=== PATIENT | male | born 1970 | race Caucasian/White ===

== ENCOUNTER 2024-09-02 06:37 | Emergency (ER) | payer BC, SELFPAY ==
--- NOTE | ~2024-09-02 | CT_ITS ---
EXAMINATION: CT abdomen pelvis w con DATE: 09/02/2024 07:44 INDICATION: Right lower quadrant abdominal pain TECHNIQUE: Computed tomography (CT) of the abdomen and pelvis was performed with 100 mL Omnipaque-350 intravenous contrast. Automated exposure control and iterative reconstruction technique were employe d. The dose-length product was 1691.29 mGy-cm. COMPARISON: None FINDINGS: Lung bases are clear. Heart size is normal. Atherosclerotic coronary artery calcifications. No perica rdial or pleural effusion. Adjustable laparoscopic banding procedure with normal phi angle of 35 degr ees. Cholecystectomy clips the gallbladder fossa. Liver, spleen, pancreas and bilateral adrenal gland s are normal. 2.3 cm right renal cyst. There are additional bilateral parapelvic cysts. Bilateral nep hrolithiasis with 4 stones in the left kidney measuring up to 5 mm and 3 stones in the right kidney m easuring up to 4 mm. There is also an obstructing 5 mm stone at the right ureteropelvic junction with mild right hydronephrosis. Moderate diverticulosis with descending colon predominance and without ad jacent inflammatory stranding to suggest diverticular colitis. No bowel obstruction. The appendix is not visualized. No pericecal inflammatory change to suggest acute appendicitis. Bladder is normal. No free intraperitoneal gas or fluid. No pathologically enlarged abdominal or pelvic lymphadenopathy. M ild lumbar and lower thoracic spondylosis. IMPRESSION: 1. Bilateral nephrolithiasis with obstructing 5 mm stone at the right ureteropelvic junction with mil d right hydronephrosis. Reviewed, dictated and finalized at location A. IMPRESSION: 1. Bilateral nephrolithiasis with obstructing 5 mm stone at the right ureterope lvic junction with mild right hydronephrosis.
[2024-09-02 06:42] VITALS: BP 146/93; PULSE 77; RESP 22; TEMP 36.3; O2SAT 98
[2024-09-02 07:00] LABS: Basophils Absolute Auto 0.1 K/mm3 (0.0-0.1); Basophils Percent Auto 0.9 % (0.2-1.2); Eosinophils Absolute Auto 0.2 K/mm3 (0-0.3); Eosinophils Percent Auto 2.7 % (0-4.4); Hematocrit 45.6 % (42.0-52.0); Hemoglobin 15.8 g/dL (14.0-18.0); Immature Granulocyte Absolute 0.03 K/mm3 (0.00-0.031); Immature Granulocyte Percent A 0.3 % (0-0.5); Lymphocytes Absolute Auto 2.26 K/mm3 (0.9-3.2); Lymphocytes Percent Auto 25.5 % (18.3-44.2); Mean Corpuscular HGB Conc 34.6 g/dl (32-36); Mean Corpuscular Volume 89.6 fl (80-100); Mean Platelet Volume 9.7 fl (7.4-10.4); Monocytes Absolute Auto 0.7 K/mm3 (0.1-0.6); Monocytes Percent Auto 7.8 % (2.6-8.5); Neutrophils Absolute Auto 5.6 K/mm3 (1.3-6.7); Neutrophils Percent Auto 62.8 % (45.5-73.1); Platelet Count Result 284 k/mm3 (150-375); Red Blood Count 5.09 M/mm3 (4.6-6.20); Red Cell Distribution Width 13.3 % (11.5-14.5); White Blood Count 8.9 K/mm3 (4.5-10.0)
--- NOTE | 2024-09-02 07:03 | ED.MALEGU ---
HPI - Male Genitourinary General Chief complaint: Urogenital-Male Stated complaint: flank pain Time Seen by Provider: 09/02/24 07:01 Source: patient Mode of arrival: ambulatory Limitations: no limitations History of Present Illness HPI Narrative: Patient presents with right lower quadrant abdominal pain. He states that this pain awoke him from sleep at 5:00 a.m.. He describes the pain as 12/10 in severity. In route to the emergency department he noted that the pain seems to be radiating to his right flank. He describes the pain as sharp. He has a history of kidney stone(s), requiring history of surgical/operative intervention. Has a urologist at home in [place]. He also has a history of diverticulitis complicated by perforation (unknown microperforation versus large perforation). He is also status post appendectomy. He last had a colonoscopy in approximately 2021 after the diverticulitis flare. He has had subjective fevers and chills and was diaphoretic EN route. He denies any dysuria but has noticed that his urine is darker in color and thinks it might be hematuria. He denies any urgency or frequency. He was having diarrheal bowel movements all day yesterday, I could have s through a screen window and not touched any wires.He has been nauseated and was dry heaving in route. No bloody bowel movements. He has not taken any medications prior to arrival. Denies any opiate/narcotic medication allergies. Still feels nauseated. 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 HEAD: Normocephalic, atraumatic. EYES: Non injected, non icteric ENT: Nares clear, no rhinorrhea or epistaxis. Gross auditory acuity intact. NECK: Supple. No meningismus. CHEST: Speaking in full sentences. No respiratory distress. HEART: Regular rate and rhythm. ABDOMEN: Obese, Soft, nondistended. Right lower quadrant tenderness to palpation. No rigidity or guarding. Not peritoneal. BACK/: No CVA tenderness bilaterally. Dark urine at bedside. EXTREMITIES: Normal range of motion. SKIN: Warm, dry, no rash. NEURO: No focal deficits. Alert and oriented. Answering questions. Following commands. Normal speech without aphasia or dysarthria. PSYCH: Normal mood and affect. Course Vital Signs Vital signs: Vital Signs Temperature 97.4 F L 09/02/24 06:42 Pulse Rate 77 09/02/24 06:42 Respiratory Rate 22 H 09/02/24 06:42 Blood Pressure 146/93 H 09/02/24 06:42 Pulse Oximetry 98 09/02/24 06:42 Oxygen Delivery Room Air 09/02/24 06:42 Temperature 97.4 F L 09/02/24 06:42 Pulse Rate 67 09/02/24 09:57 Respiratory Rate 18 09/02/24 09:57 Blood Pressure 138/82 09/02/24 09:57 Pulse Oximetry 97 09/02/24 09:57 Oxygen Delivery Room Air 09/02/24 06:42 MDM - Male Genitourinary MDM Narrative Medical decision making narrative: Patient presents with right lower quadrant abdominal pain and right flank pain. History of kidney stones as well as diverticulitis complicated by perforation (unsure microperforation versus more involved); also s/p appy. In the emergency department he is afebrile with vital signs notable for mild hypertension and mild tachypnea. Pain medication ordered. Mild hyperglycemia without an anion gap, mild derangement of CO2 but not frankly acidotic. Total bilirubin is slightly elevated. Urine without bacteria but hematuria. Patient's pain medication is re-dosed. Although there is a degree of obstruction and mild hydronephrosis, the stone size otherwise appears to be amenable to expulsion therapy and he is without leukocytosis or signs of infected urine. Given this, I did discuss with on-call urologist Dr Morel who confirms likely a good expulsion candidate. Patient given ketorolac, Flomax, and strainer. Discharged for prescriptions for combination therapy of ketorolac, Flomax, and ondansetron, as well as opiate short course for breakthrough pain. We discussed the risks and benefits of this. Patient given strict emergency department return precautions which he verifies understanding and is in agreement with the plan. Stable for discharge. Differential Diagnosis Differential diagnosis: Likely other (Ureteral stone/kidney stone, diverticulitis possibly complicated; epiploic appendagitis; colitis/enteritis; gastroenteritis; obstruction) Lab Data Attestation: I reviewed the patient's lab results. Lab results narrative: CBC unremarkable 09/02/24 06:54 09/02/24 06:54 Labs: Lab Results 09/02/24 09/02/24 Range/Units 06:54 07:06 WBC 8.9 (4.5-10.0) K/mm3 RBC 5.09 (4.6-6.20) M/mm3 Hgb 15.8 (14.0-18.0) g/dL Hct 45.6 (42.0-52.0) % MCV 89.6 (80-100) fl MCH 31.0 (26-34) pg MCHC 34.6 (32-36) g/dl RDW 13.3 (11.5-14.5) % Plt Count 284 (150-375) k/mm3 MPV 9.7 (7.4-10.4) fl Immature Gran % (Auto) 0.3 (0-0.5) % Neut % (Auto) 62.8 (45.5-73.1) % Lymph % (Auto) 25.5 (18.3-44.2) % [place] % (Auto) 7.8 (2.6-8.5) % Eos % (Auto) 2.7 (0-4.4) % Baso % (Auto) 0.9 (0.2-1.2) % Lymph # (Auto) 2.26 (0.9-3.2) K/mm3 [place] # (Auto) 0.7 H (0.1-0.6) K/mm3 Eos # (Auto) 0.2 (0-0.3) K/mm3 Baso # (Auto) 0.1 (0.0-0.1) K/mm3 Abs Immat Gran (auto) 0.03 (0.00-0.031) K/mm3 Absolute Neuts (auto) 5.6 (1.3-6.7) K/mm3 Absolute Nucleated RBC 0.000 (0.0-0.012) K/mm3 Nucleated RBC % 0.0 (0.0-0.2) % Sodium 140 (137-145) mmol/L Potassium 4.0 (3.4-5.0) mmol/L Chloride 109 H (98-107) mmol/L Carbon Dioxide 19 L (22-30) mmol/L Anion Gap 12 (4-12) mmol/L BUN 8 L (9-20) mg/dL Creatinine 0.84 (0.7-1.3) mg/dL Estim Creat Clear Calc 127 ml/min Estimated GFR > 60 (59 - ) Glucose 147 H (65-110) mg/dL Calcium 8.9 (8.4-10.2) mg/dL Total Bilirubin 1.8 H (0.2-1.3) mg/dL AST 31 (17-59) U/L ALT 37 (6-50) U/L Alkaline Phosphatase 59 (38-126) U/L Total Protein 7.5 (6.3-8.2) g/dL Albumin 4.1 (3.5-5.1) g/dL Urine Color [place] H (Yellow) Urine Appearance Cloudy H (Clear) Urine pH 5.5 (5.0-9.0) Ur Specific [place] 1.014 (1.001-1.035) Urine Protein 1+ H (Negative) mg/dL Urine Glucose (UA) Negative (Negative) mg/dL Urine Ketones Negative (Negative) mg/dL Ur Blood (Man) 3+ H (Negative) Urine Nitrate Negative (Negative) Urine Bilirubin Negative (Negative) Urine Urobilinogen 1.0 (<2.0) mg/dL Leukocyte Esterase Rfl Trace H (Negative) OWEN/UL Urine RBC >100 H (0-2) /hpf Urine WBC 6-10 H (0-3) /hpf Ur Squamous Epith Cells Occasional (Few) /hpf Urine Bacteria None seen /hpf Urine Casts 0-2 Imaging Data Radiologist's impression: Impressions Abdomen/Pelvis CT 09/02/24 07:57 IMPRESSION: 1. Bilateral nephrolithiasis with obstructing 5 mm stone at the right ureteropelvic junction with mild right hydronephrosis. Discharge Plan Discharge Clinical Impression: Gross hematuria, Obstruction of right ureteropelvic junction due to stone Patient Disposition: Home Condition: Stable Instructions: Antibiotic Form, Hematuria (ED), How to Strain Your Urine (ED), Opioid Safety (ED), Ureteral Stones (ED) Additional Instructions: As we discussed, will trial expulsion therapy with the combination of medications prescribed to see if with some assistance the stone will pass spontaneously. Use the Toradol and tamsulosin and, for breakthrough pain a short course of opiate medications have been ordered. He can strain the urine and follow-up with the urologist listed below if you remain in the area over the next few weeks. Do not hesitate to return to the emergency department any new, worsening, or unmanaged symptoms such as intractable nausea or vomiting, intractable pain, fever greater than 100.4? F, etc. Patient Language: Mauritanian Prescriptions: New tamsulosin 0.4 mg capsule 0.4 mg PO DAILY Qty: 12 0RF Rx Instructions: start 09/03 (received dose in ED 09/02) ondansetron 4 mg tablet,disintegrating 4 mg PO Q8H PRN (Reason: nausea and vomiting) Qty: 7 0RF ketorolac 10 mg tablet 10 mg PO Q8H PRN (Reason: pain) 5 Days Qty: 14 0RF Rx Instructions: maximum total duration of 5 days from all oral, intranasal, or parenteral formulations. Received first dose in ED 09/02 9am hydrocodone-acetaminophen 5-325 mg tablet 1 tablet PO Q8H PRN (Reason: pain) Qty: 7 0RF Follow-up/Referrals: PHYSICIAN NOT ON STAFF,NONSTAFF [Primary Care Provider] - Bernardino Morel MD [Physician] - (Urology) Stand Alone Forms: Work/School Release IP Time of Disposition: 09:48
[2024-09-02] MEDS: ONDANSETRON INJ 4 MG/2 ML VIAL IV PUSH (07:14)
[2024-09-02] MEDS: HYDROmorphone HCL INJ (*CRX) 2 MG/ML VIAL 1 MG IV PUSH ×2 (07:14→08:43)
[2024-09-02 07:16] LABS: Alanine Aminotransferase 37 U/L (6-50); Albumin Level 4.1 g/dL (3.5-5.1); Alkaline Phosphatase 59 U/L (38-126); Anion Gap 12 mmol/L (4-12); Aspartate Amino Transferase 31 U/L (17-59); Bilirubin,Total 1.8 mg/dL (0.2-1.3); Blood Urea Nitrogen 8 mg/dL (9-20); Calcium 8.9 mg/dL (8.4-10.2); Carbon Dioxide 19 mmol/L (22-30); Chloride 109 mmol/L (98-107); Estimated CRCL calculation 127 ml/min; Estimated Glomerular Filt Rate > 60; Glucose 147 mg/dL (65-110); Sodium 140 mmol/L (137-145); Total Protein 7.5 g/dL (6.3-8.2)
[2024-09-02 07:19] LABS: Bacteria Urine None Seen /hpf; Non Pathogenic Casts 0-2; RBC Urine >100 /hpf (0-2); Squamous Epithelial Cell Urine Occasional /hpf (Few)
[2024-09-02 07:22] LABS: Add Urine Microscopic? YES; Appearance Urine Cloudy (Clear); Bilirubin Urine Negative (Negative); Blood Urine 3+ (Negative); Color Urine Orange (Yellow); Glucose Urine UA Negative (Negative); Ketones Urine Negative (Negative); Leukocyte Esterase Ur Trace LEU/UL (Negative); Nitrate Urine Negative (Negative); Protein Urine 1+ mg/dL (Negative); Specific Grav Ur 1.014 (1.001-1.035); pH Urine 5.5 (5.0-9.0)
[2024-09-02 08:36] VITALS: BP 132/81; PULSE 62; RESP 18; O2SAT 97
[2024-09-02] MEDS: KETOROLAC 15 MG/ML VIAL (*BKC) IV PUSH (09:03)
[2024-09-02] MEDS: TAMSULOSIN HCL 0.4 MG CAPSULE PO (09:04)
[2024-09-02 09:57] VITALS: BP 138/82; PULSE 67; RESP 18; O2SAT 97
== END 2024-09-02 09:58 | disposition home or self-care (01) ==
PROVIDERS: Emergency Medicine; Emergency Provider Student in an Organized Health Care Education/Training Program
DX: N13.2 Hydronephrosis with renal and ureteral calculous obstruction (principal); R31.0 Gross hematuria; Z87.442 Personal history of urinary calculi
CPT/HCPCS: 36415; 74177; 80053; 81001; 85025; 87086; 96374; 96375; 99284; A9270; J1171; J1885; J2405; Q9967

== ENCOUNTER 2024-09-04 11:03 | Observation (INO) | payer BC, SELFPAY ==
[2024-09-04] VITALS (10 sets, daily range): BP systolic 120–163; BP diastolic 63–89; PULSE 68–92; RESP 14–98; TEMP 36.3–36.6; O2SAT 16–100; BMI 40.8
--- NOTE | ~2024-09-04 | XR_ITS ---
EXAMINATION: XR abdomen/kub 1V DATE: 09/04/2024 14:45 INDICATION: Kidney stone with abdominal pain. TECHNIQUE: A supine view of the abdomen on 2 radiographs was obtained. COMPARISON: CT dated 09/04/2024 FINDINGS: 3 if the stones in the right kidney and 4 stones in the left kidney are clearly visible on the plain radiographs. Also visible is the larger 5 mm stone in the proximal right ureter. Phlebolith and ather osclerotic calcific location the left hemipelvis. Cholecystectomy clips in right upper quadrant. Adju stable gastric banding procedure with normal phi angle of 40 degrees. Bowel gas pattern is unremarkab le. Lung bases are clear with no pleural effusion. Heart size is normal. IMPRESSION: 1. Bilateral nephrolithiasis with 5 mm stone in the proximal right ureter. Reviewed, dictated and finalized at location A.
--- NOTE | ~2024-09-04 | CT_ITS ---
EXAM: CT abdomen pelvis wo con - 09/04/2024 14:00 CDT History: 54 years old Male with kidney stone TECHNIQUE: Multidetector CT of the abdomen and pelvis without contrast. Coronal and sagittal reforma ts were also provided for review. Automatic exposure control was used for this study. COMPARISON: 09/02/2024. FINDINGS: Evaluation of bowel, vasculature, solid and hollow viscera is limited in the absence of oral and IV c ontrast. VISUALIZED CHEST: Mild dependent changes. Coronary atherosclerotic calcifications. ABDOMEN and PELVIS: LIVER: Within normal limits. GALLBLADDER: Postcholecystectomy. BILE DUCTS: No dilatation. SPLEEN: Within normal limits. PANCREAS: Within normal limits. ADRENAL GLANDS: Within normal limits. KIDNEYS and URETERS: Bilateral nephrolithiasis. 5 mm calculus in the right proximal ureter causing mi ld hydroureteronephrosis. Bilateral nonspecific perinephric stranding. Unchanged right renal cyst. URINARY BLADDER: Within normal limits. STOMACH and BOWEL: No abnormal bowel wall thickening. No obstruction. Colonic diverticulosis, without diverticulitis. Gastric band is seen. REPRODUCTIVE ORGANS: Within normal limits. MESENTERY/PERITONEAL CAVITY: No free fluid or pneumoperitoneum. LYMPH NODES: No abdominal or pelvic lymphadenopathy. ABDOMINAL WALL: Small fat-containing umbilical hernia. VASCULATURE: Within normal limits. MUSCULOSKELETAL: Multilevel degenerative changes of the spine. IMPRESSION: 1. 5 mm calculus in the right proximal ureter causing mild hydroureteronephrosis. No significant int erval change. Reviewed, dictated and finalized at location A. IMPRESSION: 1. 5 mm calculus in the right proximal ureter causing mild hydroureteronephros is. No significant interval change.
--- NOTE | ~2024-09-04 | XR_ITS ---
INTRAOPERATIVE FLUOROSCOPY: CLINICAL HISTORY: 54 years old Male; LASER ASSISTED R URETERAL STONE EXTRACTION W STENT PLACEMENT PROCEDURE COMMENTS: Limited intraoperative fluoroscopy of the right flank was performed. CUMULATIVE DOSE: 20.5 mGy FLUOROSCOPY TIME: 30.9 seconds FINDINGS/IMPRESSION: Please refer to operative note for further details. Reviewed, dictated and finalized at location A.
[2024-09-04 13:57] LABS: Add Urine Microscopic? YES; Appearance Urine Clear (Clear); Bacteria Urine None Seen /hpf; Bilirubin Urine Negative (Negative); Blood Urine Trace (Negative); Color Urine Yellow (Yellow); Glucose Urine UA Negative (Negative); Ketones Urine Trace mg/dL (Negative); Leukocyte Esterase Ur Trace LEU/UL (Negative); Nitrate Urine Negative (Negative); Non Pathogenic Casts 0-2; Protein Urine Negative (Negative); Specific Grav Ur 1.018 (1.001-1.035); Squamous Epithelial Cell Urine None Seen /hpf (Few); Urobilinogen Urine 0.2 mg/dL (<2.0); WBC Urine 0-5 /hpf (0-3); pH Urine 5.5 (5.0-9.0)
[2024-09-04 14:04] LABS: Basophils Percent Auto 0.4 % (0.2-1.2); Eosinophils Absolute Auto 0.1 K/mm3 (0-0.3); Eosinophils Percent Auto 1.2 % (0-4.4); Hematocrit 43.8 % (42.0-52.0); Immature Granulocyte Absolute 0.02 K/mm3 (0.00-0.031); Immature Granulocyte Percent A 0.2 % (0-0.5); Lymphocytes Absolute Auto 1.47 K/mm3 (0.9-3.2); Lymphocytes Percent Auto 14.7 % (18.3-44.2); Mean Corpuscular HGB Conc 34.2 g/dl (32-36); Mean Corpuscular Hemoglobin 31.3 pg (26-34); Mean Corpuscular Volume 91.4 fl (80-100); Mean Platelet Volume 9.6 fl (7.4-10.4); Monocytes Absolute Auto 0.9 K/mm3 (0.1-0.6); Monocytes Percent Auto 8.5 % (2.6-8.5); Neutrophils Absolute Auto 7.5 K/mm3 (1.3-6.7); Platelet Count Result 214 k/mm3 (150-375); Red Blood Count 4.79 M/mm3 (4.6-6.20); Red Cell Distribution Width 13.4 % (11.5-14.5)
--- NOTE | 2024-09-04 14:08 | ED_ITS ---
HPI - Male Genitourinary General Chief complaint: Urogenital-Male Stated complaint: right flank pain Time Seen by Provider: 09/04/24 14:02 History of Present Illness HPI Narrative: Pt diagnosed with a 5 mm ureteral stone 2 days ago. Pt says the pain has persisted for two days but was worse today and pain meds help a bit but still really uncomfortable. Pt denies fever or chills or vomiting. 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 Exam 2 Const: General: healthy appearing and no acute distress Nutritional Appearance: well nourished Limitations: no limitations Chest: Chest palpation & inspection: normal inspection of the chest Resp: Effort & Inspection: normal respiratory effort Auscultation: clear to auscultation bilaterally Cardio: Rate: regular rate Rhythm: regular rhythm GI: GI Palp: Yes Soft to palpation and No Tenderness to palpation present (GI) Auscultation: normal bowel sounds : General: Yes no CVA tenderness Back/Spine/Pelvis: Back: no CVA tenderness Skin: General skin exam: normal color Rashes: no rashes Wounds: no wounds Neuro: General: patient oriented x3, moves all extremities, no meningeal signs and no focal motor deficits Cranial nerves: Yes CN's II-XII intact bilaterally Speech: normal speech Extrem: General: normal to inspection and no clubbing, cyanosis or edema Psych: Mental Status: mental status grossly normal Affect: normal affect Attitude: cooperative Course Vital Signs Vital signs: Vital Signs Temperature 97.6 F 09/04/24 11:20 Pulse Rate 84 09/04/24 11:20 Respiratory Rate 20 09/04/24 11:20 Blood Pressure 147/83 H 09/04/24 11:20 Pulse Oximetry 97 09/04/24 11:20 Oxygen Delivery Room Air 09/04/24 11:20 Temperature 97.3 F L 09/04/24 18:39 Pulse Rate 79 09/04/24 18:39 Respiratory Rate 98 H 09/04/24 18:39 Blood Pressure 163/85 H 09/04/24 18:39 Pulse Oximetry 16 L 09/04/24 18:39 Oxygen Delivery Room Air 09/04/24 13:06 MDM - Male Genitourinary MDM Narrative Medical decision making narrative: Pt has known stone diagnosed two days ago. Pt having more pain. Will get repeat ct and KUB this time and labs and treat pain with dilaudid and some zofran for nausea. Pt only got less than an hour of relief with dialudid. will give second dose. CT shows no change in proximal stone. will call urology. discussed with dr flores and he will do stent in am. asked to admit to . discussed with Judi Benítez and agrees to admit. Lab Data 09/04/24 13:57 09/04/24 13:57 Labs: Lab Results 09/04/24 09/04/24 Range/Units 13:34 13:57 WBC 10.0 (4.5-10.0) K/mm3 RBC 4.79 (4.6-6.20) M/mm3 Hgb 15.0 (14.0-18.0) g/dL Hct 43.8 (42.0-52.0) % MCV 91.4 (80-100) fl MCH 31.3 (26-34) pg MCHC 34.2 (32-36) g/dl RDW 13.4 (11.5-14.5) % Plt Count 214 (150-375) k/mm3 MPV 9.6 (7.4-10.4) fl Immature Gran % (Auto) 0.2 (0-0.5) % Neut % (Auto) 75.0 H (45.5-73.1) % Lymph % (Auto) 14.7 L (18.3-44.2) % [place] % (Auto) 8.5 (2.6-8.5) % Eos % (Auto) 1.2 (0-4.4) % Baso % (Auto) 0.4 (0.2-1.2) % Lymph # (Auto) 1.47 (0.9-3.2) K/mm3 [place] # (Auto) 0.9 H (0.1-0.6) K/mm3 Eos # (Auto) 0.1 (0-0.3) K/mm3 Baso # (Auto) 0.0 (0.0-0.1) K/mm3 Abs Immat Gran (auto) 0.02 (0.00-0.031) K/mm3 Absolute Neuts (auto) 7.5 H (1.3-6.7) K/mm3 Absolute Nucleated RBC 0.000 (0.0-0.012) K/mm3 Nucleated RBC % 0.0 (0.0-0.2) % Sodium 141 (137-145) mmol/L Potassium 3.9 (3.4-5.0) mmol/L Chloride 106 (98-107) mmol/L Carbon Dioxide 27 (22-30) mmol/L Anion Gap 8 (4-12) mmol/L BUN 13 D (9-20) mg/dL Creatinine 1.51 H (0.7-1.3) mg/dL Estim Creat Clear Calc 74 ml/min Estimated GFR 48 L (59 - ) Glucose 101 (65-110) mg/dL Calcium 8.9 (8.4-10.2) mg/dL Total Bilirubin 1.5 H (0.2-1.3) mg/dL AST 29 (17-59) U/L ALT 35 (6-50) U/L Alkaline Phosphatase 56 (38-126) U/L Total Protein 7.1 (6.3-8.2) g/dL Albumin 4.0 (3.5-5.1) g/dL Urine Color Yellow (Yellow) Urine Appearance Clear (Clear) Urine pH 5.5 (5.0-9.0) Ur Specific [place] 1.018 (1.001-1.035) Urine Protein Negative (Negative) mg/dL Urine Glucose (UA) Negative (Negative) mg/dL Urine Ketones Trace H (Negative) mg/dL Ur Blood (Man) Trace (Negative) Urine Nitrate Negative (Negative) Urine Bilirubin Negative (Negative) Urine Urobilinogen 0.2 (<2.0) mg/dL Leukocyte Esterase Rfl Trace H (Negative) OWEN/UL Urine RBC 3-5 H (0-2) /hpf Urine WBC 0-5 (0-3) /hpf Ur Squamous Epith Cells None seen (Few) /hpf Urine Bacteria None seen /hpf Urine Casts 0-2 Discharge Plan Discharge Clinical Impression: Ureterolithiasis, Acute kidney injury Patient Disposition: Still a Patient Condition: Stable
[2024-09-04] MEDS: ONDANSETRON INJ 4 MG/2 ML VIAL IV PUSH (14:12)
[2024-09-04 14:14] LABS: Alanine Aminotransferase 35 U/L (6-50); Alkaline Phosphatase 56 U/L (38-126); Anion Gap 8 mmol/L (4-12); Aspartate Amino Transferase 29 U/L (17-59); Bilirubin,Total 1.5 mg/dL (0.2-1.3); Blood Urea Nitrogen 13 mg/dL (9-20); Calcium 8.9 mg/dL (8.4-10.2); Carbon Dioxide 27 mmol/L (22-30); Chloride 106 mmol/L (98-107); Estimated CRCL calculation 74 ml/min; Estimated Glomerular Filt Rate 48; Glucose 101 mg/dL (65-110); Potassium 3.9 mmol/L (3.4-5.0); Sodium 141 mmol/L (137-145); Total Protein 7.1 g/dL (6.3-8.2)
[2024-09-04] MEDS: HYDROmorphone HCL INJ (*CRX) 2 MG/ML VIAL 1 MG IV PUSH ×4 (14:16→22:36)
--- NOTE | 2024-09-04 16:46 | WPDURCON ---
Assessment and Plan Assessment and plan (1) Calculus of proximal right ureter: Code(s): N20.1 - Calculus of ureter Status: Acute (2) Hydronephrosis: Code(s): N13.30 - Unspecified hydronephrosis Status: Acute (3) Calcium renal calculus: Code(s): N20.0 - Calculus of kidney Status: Acute (4) Acute kidney injury: Code(s): N17.9 - Acute kidney failure, unspecified Status: Acute Plan He is being admitted to the hospitalist. Please make NPO after midnight. We discussed intervention for his stone. We discussed a right ureteral stent tomorrow. He understands risks of bleeding, infection, damage to the urinary tract, inability to place stent. Would likely plan on definitive stone procedure in another operative setting with either ureteroscopy or extracorporeal shockwave lithotripsy. He understands risks, benefits, alternatives. Agrees to proceed with stent tomorrow. No one from the operating room is available currently to add on. We will add on in the morning. Urology Consult Note HPI Date Seen: 09/04/24 Primary Care Provider: PHYSICIAN NOT ON STAFF Consult Narrative Narrative: Sen Newell is a 54 year old male with a long history of nephrolithiasis. He has had multiple stones and multiple stone procedures in the past. He states it has been about 5 years since he has had a stone episode. He presented the emergency room on Wednesday and was diagnosed with a proximal right ureteral stone. He was sent home with a trial of conservative stone management. He returns today with pain that cannot be controlled well on p.o. pain medicine. He denies any fevers or chills. He denies any symptoms of urinary tract infection. He does endorse some nausea without vomiting he saw blood in the urine on Wednesday with a stone episode started. I reviewed the CT scan he has multiple bilateral renal stones he has an obstructing 5 mm stone in the right proximal ureter with hydronephrosis. He also has evidence of acute kidney injury. 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 Home Medications and Allergies Home Medications ?Medication ?Instructions ?Recorded ?Confirmed ?Type hydrocodone 5 mg-acetaminophen 325 1 tablet PO Q8H PRN pain #7 tabs 09/02/24 Rx mg tablet ketorolac 10 mg tablet 10 mg PO Q8H PRN pain 5 days #14 09/02/24 Rx tabs ondansetron 4 mg disintegrating 4 mg PO Q8H PRN nausea and 09/02/24 Rx tablet vomiting #7 tabs tamsulosin 0.4 mg capsule 0.4 mg PO DAILY #12 caps 09/02/24 Rx Allergies Allergy/AdvReac Type Severity Reaction Status Date / Time Penicillins Allergy Hives Verified 09/04/24 11:22 Vital Signs Vital Signs - 24 hr 09/04/24 11:20 09/04/24 13:06 09/04/24 13:06 Temperature 97.6 F Pulse Rate 84 71 74 Respiratory Rate 20 17 14 Blood Pressure 147/83 H 128/70 128/70 Pulse Oximetry 97 98 98 Oxygen Delivery Room Air Room Air 09/04/24 14:04 09/04/24 15:47 Temperature Pulse Rate 77 68 Respiratory Rate 16 14 Blood Pressure 157/83 H 151/89 H Pulse Oximetry 100 100 Oxygen Delivery Exam Const: General: cooperative, healthy appearing and obese Nutritional Appearance: overweight Limitations: no limitations HENMT: Head: normal to inspection Eyes: General: appearance normal, both eyes and all related structures Neck: Neck: normal visual inspection Resp: Effort & Inspection: normal respiratory effort, no cough and no grunting GI: Inspection: normal to inspection Skin: General skin exam: normal color Neuro: General: patient oriented x3 and moves all extremities Extrem: General: normal to inspection Results Labs 09/04/24 13:57 09/04/24 13:57 Labs: Short CBC 09/04/24 Range/Units 13:57 WBC 10.0 (4.5-10.0) K/mm3 Hgb 15.0 (14.0-18.0) g/dL Hct 43.8 (42.0-52.0) % Plt Count 214 (150-375) k/mm3 BMP 09/04/24 13:57 Sodium 141 Potassium 3.9 Chloride 106 Carbon Dioxide 27 BUN 13 D Creatinine 1.51 H Glucose 101 Calcium 8.9 Liver Function 09/04/24 Range/Units 13:57 Total Bilirubin 1.5 H (0.2-1.3) mg/dL AST 29 (17-59) U/L ALT 35 (6-50) U/L Alkaline Phosphatase 56 (38-126) U/L Albumin 4.0 (3.5-5.1) g/dL Urine 09/04/24 Range/Units 13:34 Urine Color Yellow (Yellow) Urine Appearance Clear (Clear) Urine pH 5.5 (5.0-9.0) Ur Specific [place] 1.018 (1.001-1.035) Urine Protein Negative (Negative) mg/dL Urine Glucose (UA) Negative (Negative) mg/dL Imaging My impression: I reviewed his CT scan and KUB personally. Outlined in history of present illness
--- NOTE | 2024-09-04 17:58 | P.HP_ITS ---
H&P: HPI History of Present Illness Date/Time: 09/04/24 17:58 Chief Complaint: Flank Pain Narrative: 54-year-old male with past medical history of kidney stones and diverticulitis presents here with bilateral flank pain and abdominal pain. The patient originally presented to [facility] on 09/02 for further evaluation of right lower quadrant pain that woke him from sleep at 5:00 a.m.. Pain in his right abdomen radiated into his right flank. This was accompanied by subjective fevers, chills, and diaphoresis. He reported at that time that his urine was darker than usual, but denied any accompanying dysuria, urgency, or frequency. At the time he also reported diarrhea that had started the day prior. As the patient's urine did not appear infected and the degree of obstruction and hydronephrosis were mild, the patient was a good candidate for outpatient treatment. He was prescribed Toradol, Flomax, and Zofran as well as a short course of opiates for breakthrough pain. Now returning today as the pain has continued to be constant and he has not passed the stone. Now endorsing urinary frequency and dysuria. He denies any current fever or chills. Initial VS at presentation: ED workup showed: No leukocytosis, no anemia, no significant electrolyte derangements, creatinine 1.51 and GFR 48 (previously 0.84 and GFR >60 on 09/02), and UA showed trace ketones/trace leuk esterase/ 3-[address] of the abdomen/pelvis showed a 5 mm calculus in the right proximal ureter causing mild hydroureteronephrosis with no significant interval change. Abdominal XR showed bilateral nephrolithiasis with 5 mm stone in the proximal right ureter. Review of Systems Review of Systems: All systems reviewed & are unremarkable except as noted in HPI and below PMFSH Past Medical History Medical History History of renal stone Diverticulitis of intestine with perforation Surgical History Surgical History History of colonoscopy approx 2021 S/P appendectomy Social History Social History Social History: Resides in [place] Smoking packs per day: 5 Smoking cigarettes per day: 100.0 Years smoked: 1 Smoking pack-years: 5.00 Smoking status: Former smoker Tobacco type: cigarettes Smokeless tobacco user: chewing tobacco Second hand tobacco smoke exposure: No Alcohol intake: current Drinks per week: 5 Substance use type: does not use Do You Feel Safe in your Home?: Yes Lack of Transportation: No Lack of Food: Never True Current Housing: I Have Housing Concerned About Future Housing: No Difficulty Paying Gas/Electric Bills: No Difficulty Paying for Meds: No Currently Unemployed: No Education: Associate Degree Difficulty w/ Childcare or Family Care: No Occupation/Education: occupation Additional occupation/education comments: [employer] workers Spiritual care concerns: No Meds Home Medications and Allergies Home Medications ?Medication ?Instructions ?Recorded ?Confirmed ?Type hydrocodone 5 mg-acetaminophen 325 1 tablet PO Q8H PRN pain #7 tabs 09/02/24 09/04/24 Rx mg tablet ketorolac 10 mg tablet 10 mg PO Q8H PRN pain 5 days #14 09/02/24 09/04/24 Rx tabs ondansetron 4 mg disintegrating 4 mg PO Q8H PRN nausea and 09/02/24 09/04/24 Rx tablet vomiting #7 tabs tamsulosin 0.4 mg capsule 0.4 mg PO DAILY #12 caps 09/02/24 09/04/24 Rx Allergies Allergy/AdvReac Type Severity Reaction Status Date / Time Penicillins Allergy Hives Verified 09/04/24 11:22 Vital Signs Vital Signs - 24 hr 09/04/24 11:20 09/04/24 13:06 09/04/24 13:06 Temperature 97.6 F Pulse Rate 84 71 74 Respiratory Rate 20 17 14 Blood Pressure 147/83 H 128/70 128/70 Pulse Oximetry 97 98 98 Oxygen Delivery Room Air Room Air 09/04/24 14:04 09/04/24 15:47 09/04/24 16:55 Temperature Pulse Rate 77 68 92 Respiratory Rate 16 14 16 Blood Pressure 157/83 H 151/89 H 147/84 H Pulse Oximetry 100 100 98 Oxygen Delivery 09/04/24 17:22 Temperature 97.7 F Pulse Rate 78 Respiratory Rate 15 Blood Pressure 128/64 Pulse Oximetry 97 Oxygen Delivery Exam Const: General: no acute distress Other: , male, mild discomfort noted, obese body habitus, nontoxic appearance HENMT: Face/Nose/Sinus: Normal nares present Mouth: Yes moist mucous membr anes Eyes: General: appearance normal, both eyes and all related structures Sclera: sclerae normal Pupils: Equal, round and reactive pupils present EOM: EOMs intact bilaterally Resp: Effort & Inspection: normal respiratory effort Auscultation: clear to auscultation bilaterally Cardio: Rate: regular rate Rhythm: regular rhythm Other: S1-S2 present without murmur, rub, ectopy GI: Other: Abdomen soft, nondistended, nontender with palpation. Normoactive bowel sounds in all quadrants. Skin: General skin exam: normal color and no rashes or lesions noted Wounds: no wounds Neuro: Speech: normal speech Motor exam (neuro): 5/5 motor strength present throughout Sensory Exam: normal sensation Other: A&O x4 Extrem: General: normal to inspection Psych: Mental Status: mental status grossly normal Affect: normal affect Other: Good insight and judgment, very pleasant H&P: Results Labs Labs: Short CBC 09/04/24 Range/Units 13:57 WBC 10.0 (4.5-10.0) K/mm3 Hgb 15.0 (14.0-18.0) g/dL Hct 43.8 (42.0-52.0) % Plt Count 214 (150-375) k/mm3 BMP 09/04/24 13:57 Sodium 141 Potassium 3.9 Chloride 106 Carbon Dioxide 27 BUN 13 D Creatinine 1.51 H Glucose 101 Calcium 8.9 Liver Function 09/04/24 Range/Units 13:57 Total Bilirubin 1.5 H (0.2-1.3) mg/dL AST 29 (17-59) U/L ALT 35 (6-50) U/L Alkaline Phosphatase 56 (38-126) U/L Albumin 4.0 (3.5-5.1) g/dL Urine 09/04/24 Range/Units 13:34 Urine Color Yellow (Yellow) Urine Appearance Clear (Clear) Urine pH 5.5 (5.0-9.0) Ur Specific [place] 1.018 (1.001-1.035) Urine Protein Negative (Negative) mg/dL Urine Glucose (UA) Negative (Negative) mg/dL Assessment and Plan Assessment and plan (1) Calculus of proximal right ureter: Code(s): N20.1 - Calculus of ureter Status: Acute Assessment and Plan: CT showed a 5 mm calculus in the right proximal ureter causing mild hy droureteronephrosis, no significant interval change compared to prior. Urology consulted, plan for cystoscopy and stent placement tomorrow on 09/05. NPO at midnight. Analgesics p.r.n.. Continue Flomax. (2) Acute kidney injury: Code(s): N17.9 - Acute kidney failure, unspecified Status: Acute Assessment and Plan: Creatinine 0.84 and GFR >60 on 09/02 -> 1.51 and GFR 48 on 09/04. Presumed OPAL secondary to renal calculi causing mild right hydroureteronephrosis. Will continue aggressive IV fluids, plan for stent placement and cystoscopy tomorrow. Continue to trend renal function. UA showed no indicators of infection. Plan Diet: Regular, NPO at midnight GI Prophylaxis: Not currently indicated DVT Prophylaxis: SCDs IV fluids: NS at 250 mL/hour Lines/Tubes: Peripheral IV Code Status: Full code Quality VTE Prophylaxis VTE prophylaxis: mechanical ordered Hospitalist [facility] Advance Care Plan I have confirmed that the patient's Advanced Care Plan is present, code status is documented, or surrogate decision maker is listed in patient medical record.: Yes Medication Reconciliation I have utilized all available resources to obtain, update and review the patients current medications (includes all prescriptions, OTC, herbals, cannabis, and nutritional supplements).: Yes
--- NOTE | 2024-09-04 18:05 | ADMGEN ---
This patient, Sen Newell, was admitted to [facility] Surg Room 320-01 at 1750. Patient/family oriented to hospital policies and general routines including ID bracelet, bed and alarms, visiting hours, pain management, procedures, bathroom and other care routines, personal items, smoking policy, room service/diet, and visiting hours. Information on how to activate the Rapid Response Team has been discussed. Patient/Family are encouraged to report perceived risks to care and to ask questions if they do not understand what they are told or what they should do.
[2024-09-04] MEDS: SODIUM CHLORIDE 0.9% IV 1,000 ML 250 ML IV CONT ×2 (18:07→23:02)
--- NOTE | 2024-09-04 22:46 | PC.NURSE ---
respiratory called about the ordered apnea link. RT states it is too late tonight and they wouldn't get enough data so they will do it tomorrow night
[2024-09-05] VITALS (15 sets, daily range): BP systolic 105–164; BP diastolic 53–86; PULSE 60–78; RESP 15–20; TEMP 35.6–37; O2SAT 92–99
[2024-09-05] MEDS: SODIUM CHLORIDE 0.9% IV 1,000 ML 250 ML IV CONT ×2 (03:09→06:58)
[2024-09-05] MEDS: HYDROmorphone HCL INJ (*CRX) 2 MG/ML VIAL 1 MG IV PUSH ×4 (03:12→20:23)
[2024-09-05 07:40] LABS: Basophils Absolute Auto 0.1 K/mm3 (0.0-0.1); Basophils Percent Auto 0.6 % (0.2-1.2); Eosinophils Absolute Auto 0.2 K/mm3 (0-0.3); Eosinophils Percent Auto 1.7 % (0-4.4); Hematocrit 37.9 % (42.0-52.0); Hemoglobin 12.8 g/dL (14.0-18.0); Immature Granulocyte Absolute 0.04 K/mm3 (0.00-0.031); Immature Granulocyte Percent A 0.5 % (0-0.5); Lymphocytes Absolute Auto 1.16 K/mm3 (0.9-3.2); Lymphocytes Percent Auto 13.5 % (18.3-44.2); Mean Corpuscular HGB Conc 33.8 g/dl (32-36); Mean Corpuscular Hemoglobin 31.4 pg (26-34); Mean Corpuscular Volume 92.9 fl (80-100); Mean Platelet Volume 10.1 fl (7.4-10.4); Monocytes Absolute Auto 0.8 K/mm3 (0.1-0.6); Monocytes Percent Auto 9.7 % (2.6-8.5); Neutrophils Absolute Auto 6.4 K/mm3 (1.3-6.7); Platelet Count Result 179 k/mm3 (150-375); Red Blood Count 4.08 M/mm3 (4.6-6.20); Red Cell Distribution Width 13.2 % (11.5-14.5); White Blood Count 8.6 K/mm3 (4.5-10.0)
[2024-09-05] MEDS: TAMSULOSIN HCL 0.4 MG CAPSULE PO (08:01)
[2024-09-05 08:09] LABS: Alanine Aminotransferase 26 U/L (6-50); Albumin Level 3.2 g/dL (3.5-5.1); Alkaline Phosphatase 47 U/L (38-126); Anion Gap 5 mmol/L (4-12); Aspartate Amino Transferase 25 U/L (17-59); Bilirubin,Total 1.6 mg/dL (0.2-1.3); Blood Urea Nitrogen 12 mg/dL (9-20); Calcium 8.3 mg/dL (8.4-10.2); Carbon Dioxide 27 mmol/L (22-30); Chloride 107 mmol/L (98-107); Estimated CRCL calculation 72 ml/min; Estimated Glomerular Filt Rate 47; Glucose 107 mg/dL (65-110); Potassium 3.9 mmol/L (3.4-5.0); Sodium 139 mmol/L (137-145); Total Protein 5.9 g/dL (6.3-8.2)
--- NOTE | 2024-09-05 08:14 | P.PNIM_ITS ---
Progress Note: A&P Assessment and Plan (1) Calculus of proximal right ureter: Code(s): N20.1 - Calculus of ureter Status: Acute Assessment and Plan: CT showed a 5 mm calculus in the right proximal ureter causing mild hydroureteronephrosis, no significant interval change compared to prior. Urology consulted, plan for cystoscopy and stent placement tomorrow on 09/05. NPO at midnight. Analgesics p.r.n.. Continue Flomax. (2) Acute kidney injury: Code(s): N17.9 - Acute kidney failure, unspecified Status: Acute Assessment and Plan: Creatinine 0.84 and GFR >60 on 09/02 -> 1.51 and GFR 48 on 09/04. Presumed OPAL secondary to renal calculi causing mild right hydroureteronephrosis. Will continue aggressive IV fluids, plan for stent placement and cystoscopy tomorrow. -trend renal function. UA showed no indicators of infection. Plan Diet: Regular, NPO at midnight GI Prophylaxis: Not currently indicated DVT Prophylaxis: SCDs IV fluids: NS at 250 mL/hour Lines/Tubes: Peripheral IV Code Status: Full code Time Spent With Patient Time with patient: 25 - 35 minutes Subjective Date/time seen: 09/05/24 08:14 Interval history: 54-year-old male with past medical history of kidney stones and diverticulitis presents here with bilateral flank pain and abdominal pain. ED workup showed: No leukocytosis, no anemia, no significant electrolyte derangements, creatinine 1.51 and GFR 48 (previously 0.84 and GFR >60 on 09/02), and UA showed trace ketones/trace leuk esterase/ 3-[address] of the abdomen/pelvis showed a 5 mm calculus in the right proximal ureter causing mild hydroureteronephrosis with no significant interval change. Abdominal XR showed bilateral nephrolithiasis with 5 mm stone in the proximal right ureter. Urology is consulted. NPO yesterday, Sten placement today with DR Flores Review of Systems Review of Systems: All systems reviewed & are unremarkable except as noted in HPI and below Exam Narrative: benign exam, obese. otherwise normal exam. Const: General: no acute distress Other: , male, mild discomfort noted, obese body habitus, nontoxic appearance HENMT: Face/Nose/Sinus: Normal nares present Mouth: Yes moist mucous membranes Eyes: General: appearance normal, both eyes and all related structures Sclera: sclerae normal Pupils: Equal, round and reactive pupils present EOM: EOMs intact bilaterally Resp: Effort & Inspection: normal respiratory effort Auscultation: clear to auscultation bilaterally Cardio: Rate: regular rate Rhythm: regular rhythm Other: S1-S2 present without murmur, rub, ectopy GI: Other: Abdomen soft, nondistended, nontender with palpation. Normoactive bowel sounds in all quadrants. Skin: General skin exam: normal color and no rashes or lesions noted Wounds: no wounds Neuro: Cranial nerves: Yes Equal, round and reactive pupils present Speech: normal speech Motor exam (neuro): 5/5 motor strength present throughout Sensory Exam: normal sensation Other: A&O x4 Extrem: General: normal to inspection Psych: Mental Status: mental status grossly normal Affect: normal affect Other: Good insight and judgment, very pleasant Objective Data Vital Signs Vital Signs: Vital Signs - 24 hr 09/04/24 11:20 09/04/24 13:06 09/04/24 13:06 Temperature 97.6 F Pulse Rate 84 71 74 Respiratory Rate 20 17 14 Blood Pressure 147/83 H 128/70 128/70 Pulse Oximetry 97 98 98 Oxygen Delivery Room Air Room Air Fraction of Inspired Oxygen 09/04/24 14:04 09/04/24 15:47 09/04/24 16:55 Temperature Pulse Rate 77 68 92 Respiratory Rate 16 14 16 Blood Pressure 157/83 H 151/89 H 147/84 H Pulse Oximetry 100 100 98 Oxygen Delivery Fraction of Inspired Oxygen 09/04/24 17:22 09/04/24 18:39 09/04/24 18:48 Temperature 97.7 F 97.3 F L Pulse Rate 78 79 Respiratory Rate 15 98 H Blood Pressure 128/64 163/85 H Pulse Oximetry 97 16 L 99 Oxygen Delivery Room Air Fraction of Inspired Oxygen 09/04/24 20:00 09/04/24 21:27 09/04/24 21:52 Temperature 97.8 F Pulse Rate 71 75 Respiratory Rate 20 18 Blood Pressure 120/63 Pulse Oximetry 97 100 Oxygen Delivery Room Air Room Air Fraction of Inspired Oxygen 09/05/24 05:59 Temperature 98.6 F Pulse Rate 72 Respiratory Rate 20 Blood Pressure 128/61 Pulse Oximetry 94 Oxygen Delivery Fraction of Inspired Oxygen Intake/Output Intake/Output: Intake & Output 09/02/24 09/03/24 09/04/24 09/05/24 23:59 23:59 23:59 23:59 Intake Total 1000 1954.2 Output Total 700 2200 Balance 300 -245.8 Meds/Results Medications: Active Medications Generic Name Dose Route Start Last Admin Trade Name Freq PRN Reason Stop Dose Admin Acetaminophen 650 mg 09/04/24 22:05 Acetaminophen 325 Mg Tablet PO Q6H PRN Mild Pain (1-3) or Fever Hydrocodone Bitart/Acetaminophen 1 tab 09/04/24 22:05 Hydrocodone/Acetaminophen (*Crx) 5-325 Mg Tablet PO Q4H PRN Pain Rated 4-6 Hydromorphone HCl 1 mg 09/04/24 22:06 09/05/24 07:59 Hydromorphone Hcl Inj (*Crx) 2 Mg/Ml Vial IV PUSH 1 mg Q3H PRN Administration Pain Rated 7-10 Sodium Chloride 1,000 mls @ 250 mls/hr 09/04/24 17:00 09/05/24 06:58 Normal Saline Iv IV CONT 250 mls/hr .Q4H VÍCTOR Administration Ondansetron HCl 4 mg 09/04/24 16:58 Ondansetron Inj 4 Mg/2 Ml Vial IV PUSH Q4H PRN Nausea Tamsulosin HCl 0.4 mg 09/05/24 09:00 09/05/24 08:01 Tamsulosin Hcl 0.4 Mg Capsule PO 0.4 mg DAILY VÍCTOR Administration Radiology Results: ITS Impressions Abdomen/Pelvis CT 09/04/24 14:29 IMPRESSION: 1. 5 mm calculus in the right proximal ureter causing mild hydroureteronephrosis. No significant interval change. Abdomen X-Ray 09/04/24 14:54 IMPRESSION: 1. Bilateral nephrolithiasis with 5 mm stone in the proximal right ureter. Labs Labs: Laboratory Results - last 24 hr 09/04/24 09/04/24 09/05/24 13:34 13:57 07:02 WBC 10.0 8.6 RBC 4.79 4.08 L Hgb 15.0 12.8 L Hct 43.8 37.9 L MCV 91.4 92.9 MCH 31.3 31.4 MCHC 34.2 33.8 RDW 13.4 13.2 Plt Count 214 179 MPV 9.6 10.1 Immature Gran % (Auto) 0.2 0.5 Neut % (Auto) 75.0 H 74.0 H Lymph % (Auto) 14.7 L 13.5 L [place] % (Auto) 8.5 9.7 H Eos % (Auto) 1.2 1.7 Baso % (Auto) 0.4 0.6 Lymph # (Auto) 1.47 1.16 [place] # (Auto) 0.9 H 0.8 H Eos # (Auto) 0.1 0.2 Baso # (Auto) 0.0 0.1 Abs Immat Gran (auto) 0.02 0.04 H Absolute Neuts (auto) 7.5 H 6.4 Absolute Nucleated RBC 0.000 0.000 Nucleated RBC % 0.0 0.0 Sodium 141 139 Potassium 3.9 3.9 Chloride 106 107 Carbon Dioxide 27 27 Anion Gap 8 5 BUN 13 D 12 Creatinine 1.51 H 1.56 H Estim Creat Clear Calc 74 72 Estimated GFR 48 L 47 L Glucose 101 107 Calcium 8.9 8.3 L Total Bilirubin 1.5 H 1.6 H AST 29 25 ALT 35 26 Alkaline Phosphatase 56 47 Total Protein 7.1 5.9 L Albumin 4.0 3.2 L Urine Color Yellow Urine Appearance Clear Urine pH 5.5 Ur Specific [place] 1.018 Urine Protein Negative Urine Glucose (UA) Negative Urine Ketones Trace H Ur Blood (Man) Trace Urine Nitrate Negative Urine Bilirubin Negative Urine Urobilinogen 0.2 Leukocyte Esterase Rfl Trace H Urine RBC 3-5 H Urine WBC 0-5 Ur Squamous Epith Cells None seen Urine Bacteria None seen Urine Casts 0-2 Quality VTE Prophylaxis VTE prophylaxis: mechanical ordered
--- NOTE | 2024-09-05 08:45 | WPDUROPN2 ---
Progress Note: A&P Assessment and Plan (1) Calculus of proximal right ureter: Code(s): N20.1 - Calculus of ureter Status: Acute (2) Hydronephrosis: Code(s): N13.30 - Unspecified hydronephrosis Status: Acute (3) Calcium renal calculus: Code(s): N20.0 - Calculus of kidney Status: Acute (4) Acute kidney injury: Code(s): N17.9 - Acute kidney failure, unspecified Status: Acute Plan Patient with 5 mm proximal right ureteral calculus with mild hydroureteronephrosis. Planning for cystoscopy, right retrograde pyelogram, and right ureteral stent placement this afternoon with Dr. Iniguez. Review details of procedure, risks, benefits. He is agreeable to proceed. Understands temporary nature of stent and need for definitive stone management at a later date. He had a negative urine culture on 09/02/2024. Continue to monitor renal function. Creatinine 1.56 today. Continue NPO diet while awaiting surgery. Subjective Subjective Date/Time Seen: 09/05/24 08:45 Interval history: Sen is feeling well today. His pain has been well controlled with IV analgesics. Currently reports 4/10 right flank pain. He is urinating without difficulty. Denies dysuria or hematuria. Denies nausea, vomiting, fever, or chills. Currently NPO. Review of Systems Review of Systems: All systems reviewed & are unremarkable except as noted in HPI and below Exam Narrative: General: Awake, alert, comfortable, no acute distress HEENT: Normocephalic, atraumatic, sclerae anicteric Respiratory: Normal respiratory effort, no accessory muscle use Skin: Normal coloration, warm and dry Neurologic: No focal neuro deficits noted Psychiatric: Appropriate mood and affect, judgment and insight intact Objective Data Vital Signs Vital Signs: Vital Signs - 24 hr 09/04/24 11:20 09/04/24 13:06 09/04/24 13:06 Temperature 97.6 F Pulse Rate 84 71 74 Respiratory Rate 20 17 14 Blood Pressure 147/83 H 128/70 128/70 Pulse Oximetry 97 98 98 Oxygen Delivery Room Air Room Air Fraction of Inspired Oxygen 09/04/24 14:04 09/04/24 15:47 09/04/24 16:55 Temperature Pulse Rate 77 68 92 Respiratory Rate 16 14 16 Blood Pressure 157/83 H 151/89 H 147/84 H Pulse Oximetry 100 100 98 Oxygen Delivery Fraction of Inspired Oxygen 09/04/24 17:22 09/04/24 18:39 09/04/24 18:48 Temperature 97.7 F 97.3 F L Pulse Rate 78 79 Respiratory Rate 15 98 H Blood Pressure 128/64 163/85 H Pulse Oximetry 97 16 L 99 Oxygen Delivery Room Air Fraction of Inspired Oxygen 09/04/24 20:00 09/04/24 21:27 09/04/24 21:52 Temperature 97.8 F Pulse Rate 71 75 Respiratory Rate 20 18 Blood Pressure 120/63 Pulse Oximetry 97 100 Oxygen Delivery Room Air Room Air Fraction of Inspired Oxygen 21 09/05/24 05:59 Temperature 98.6 F Pulse Rate 72 Respiratory Rate 20 Blood Pressure 128/61 Pulse Oximetry 94 Oxygen Delivery Fraction of Inspired Oxygen Intake/Output Intake/Output: Intake & Output 09/02/24 09/03/24 09/04/24 09/05/24 23:59 23:59 23:59 23:59 Intake Total 1000 1954.2 Output Total 700 2200 Balance 300 -245.8 Meds/Results Medications: Active Medications Generic Name Dose Route Start Last Admin Trade Name Freq PRN Reason Stop Dose Admin Acetaminophen 650 mg 09/04/24 22:05 Acetaminophen 325 Mg Tablet PO Q6H PRN Mild Pain (1-3) or Fever Hydrocodone Bitart/Acetaminophen 1 tab 09/04/24 22:05 Hydrocodone/Acetaminophen (*Crx) 5-325 Mg Tablet PO Q4H PRN Pain Rated 4-6 Hydromorphone HCl 1 mg 09/04/24 22:06 09/05/24 07:59 Hydromorphone Hcl Inj (*Crx) 2 Mg/Ml Vial IV PUSH 1 mg Q3H PRN Administration Pain Rated 7-10 Sodium Chloride 1,000 mls @ 250 mls/hr 09/04/24 17:00 09/05/24 06:58 Normal Saline Iv IV CONT 250 mls/hr .Q4H VÍCTOR Administration Ondansetron HCl 4 mg 09/04/24 16:58 Ondansetron Inj 4 Mg/2 Ml Vial IV PUSH Q4H PRN Nausea Tamsulosin HCl 0.4 mg 09/05/24 09:00 09/05/24 08:01 Tamsulosin Hcl 0.4 Mg Capsule PO 0.4 mg DAILY VÍCTOR Administration Radiology Results: ITS Impressions Abdomen/Pelvis CT 09/04/24 14:29 IMPRESSION: 1. 5 mm calculus in the right proximal ureter causing mild hydroureteronephrosis. No significant interval change. Abdomen X-Ray 09/04/24 14:54 IMPRESSION: 1. Bilateral nephrolithiasis with 5 mm stone in the proximal right ureter. Labs Labs: Laboratory Results - last 24 hr 09/04/24 09/04/24 09/05/24 13:34 13:57 07:02 WBC 10.0 8.6 RBC 4.79 4.08 L Hgb 15.0 12.8 L Hct 43.8 37.9 L MCV 91.4 92.9 MCH 31.3 31.4 MCHC 34.2 33.8 RDW 13.4 13.2 Plt Count 214 179 MPV 9.6 10.1 Immature Gran % (Auto) 0.2 0.5 Neut % (Auto) 75.0 H 74.0 H Lymph % (Auto) 14.7 L 13.5 L [place] % (Auto) 8.5 9.7 H Eos % (Auto) 1.2 1.7 Baso % (Auto) 0.4 0.6 Lymph # (Auto) 1.47 1.16 [place] # (Auto) 0.9 H 0.8 H Eos # (Auto) 0.1 0.2 Baso # (Auto) 0.0 0.1 Abs Immat Gran (auto) 0.02 0.04 H Absolute Neuts (auto) 7.5 H 6.4 Absolute Nucleated RBC 0.000 0.000 Nucleated RBC % 0.0 0.0 Sodium 141 139 Potassium 3.9 3.9 Chloride 106 107 Carbon Dioxide 27 27 Anion Gap 8 5 BUN 13 D 12 Creatinine 1.51 H 1.56 H Estim Creat Clear Calc 74 72 Estimated GFR 48 L 47 L Glucose 101 107 Calcium 8.9 8.3 L Total Bilirubin 1.5 H 1.6 H AST 29 25 ALT 35 26 Alkaline Phosphatase 56 47 Total Protein 7.1 5.9 L Albumin 4.0 3.2 L Urine Color Yellow Urine Appearance Clear Urine pH 5.5 Ur Specific [place] 1.018 Urine Protein Negative Urine Glucose (UA) Negative Urine Ketones Trace H Ur Blood (Man) Trace Urine Nitrate Negative Urine Bilirubin Negative Urine Urobilinogen 0.2 Leukocyte Esterase Rfl Trace H Urine RBC 3-5 H Urine WBC 0-5 Ur Squamous Epith Cells None seen Urine Bacteria None seen Urine Casts 0-2
--- NOTE | 2024-09-05 11:17 | ADMGEN ---
To OR per [ KAPIL], IV [ ]. Report given to [KAPIL ].
[2024-09-05] MEDS: LACTATED RINGERS 1,000 ML 30 ML IV CONT (11:25)
--- NOTE | 2024-09-05 11:37 | WPDANESEPPF ---
Anes - Initial Pre Proc Eval Procedure: Operation Date: 09/05/24 12:30 Proposed Procedures p Cystoscopy, Right Retrograde Pyelogram, Right Stent Placement - Harshil Iniguez MD Date/Time: 09/05/24 11:37 Surgeon: Claire Collazo MD Pre Op Diagnosis: ureterolothiasis Patient Data Age: 54 Gender: M Height: 1.85 m Weight: 140.3 kg Last Vital Signs Temp 37.0 C 09/05/24 05:59 Pulse 72 09/05/24 05:59 Resp 20 09/05/24 05:59 BP 128/61 09/05/24 05:59 Pulse Ox 94 09/05/24 05:59 O2 Del Method Room Air 09/04/24 21:27 FiO2 21 09/04/24 21:27 Allergies Allergy/AdvReac Type Severity Reaction Status Date / Time Penicillins Allergy Hives Verified 09/04/24 11:22 Home Medications ?Medication ?Instructions ?Recorded ?Confirmed ?Type hydrocodone 5 mg-acetaminophen 325 1 tablet PO Q8H PRN pain #7 tabs 09/02/24 09/04/24 Rx mg tablet ketorolac 10 mg tablet 10 mg PO Q8H PRN pain 5 days #14 09/02/24 09/04/24 Rx tabs ondansetron 4 mg disintegrating 4 mg PO Q8H PRN nausea and 09/02/24 09/04/24 Rx tablet vomiting #7 tabs tamsulosin 0.4 mg capsule 0.4 mg PO DAILY #12 caps 09/02/24 09/04/24 Rx Laboratory Tests 09/04/24 09/04/24 09/05/24 13:34 13:57 07:02 WBC 10.0 K/mm3 8.6 K/mm3 (4.5-10.0) (4.5-10.0) RBC 4.79 M/mm3 4.08 L M/mm3 (4.6-6.20) (4.6-6.20) Hgb 15.0 g/dL 12.8 L g/dL (14.0-18.0) (14.0-18.0) Hct 43.8 % 37.9 L % (42.0-52.0) (42.0-52.0) MCV 91.4 fl 92.9 fl (80-100) (80-100) MCH 31.3 pg 31.4 pg (26-34) (26-34) MCHC 34.2 g/dl 33.8 g/dl (32-36) (32-36) RDW 13.4 % 13.2 % (11.5-14.5) (11.5-14.5) Plt Count 214 k/mm3 179 k/mm3 (150-375) (150-375) MPV 9.6 fl 10.1 fl (7.4-10.4) (7.4-10.4) Immature Gran % (Auto) 0.2 % 0.5 % (0-0.5) (0-0.5) Neut % (Auto) 75.0 H % 74.0 H % (45.5-73.1) (45.5-73.1) Lymph % (Auto) 14.7 L % 13.5 L % (18.3-44.2) (18.3-44.2) [place] % (Auto) 8.5 % 9.7 H % (2.6-8.5) (2.6-8.5) Eos % (Auto) 1.2 % 1.7 % (0-4.4) (0-4.4) Baso % (Auto) 0.4 % 0.6 % (0.2-1.2) (0.2-1.2) Lymph # (Auto) 1.47 K/mm3 1.16 K/mm3 (0.9-3.2) (0.9-3.2) [place] # (Auto) 0.9 H K/mm3 0.8 H K/mm3 (0.1-0.6) (0.1-0.6) Eos # (Auto) 0.1 K/mm3 0.2 K/mm3 (0-0.3) (0-0.3) Baso # (Auto) 0.0 K/mm3 0.1 K/mm3 (0.0-0.1) (0.0-0.1) Abs Immat Gran (auto) 0.02 K/mm3 0.04 H K/mm3 (0.00-0.031) (0.00-0.031) Absolute Neuts (auto) 7.5 H K/mm3 6.4 K/mm3 (1.3-6.7) (1.3-6.7) Absolute Nucleated RBC 0.000 K/mm3 0.000 K/mm3 (0.0-0.012) (0.0-0.012) Nucleated RBC % 0.0 % 0.0 % (0.0-0.2) (0.0-0.2) Sodium 141 mmol/L 139 mmol/L (137-145) (137-145) Potassium 3.9 mmol/L 3.9 mmol/L (3.4-5.0) (3.4-5.0) Chloride 106 mmol/L 107 mmol/L (98-107) (98-107) Carbon Dioxide 27 mmol/L 27 mmol/L (22-30) (22-30) Anion Gap 8 mmol/L 5 mmol/L (4-12) (4-12) BUN 13 D mg/dL 12 mg/dL (9-20) (9-20) Creatinine 1.51 H mg/dL 1.56 H mg/dL (0.7-1.3) (0.7-1.3) Estim Creat Clear Calc 74 ml/min 72 ml/min Estimated GFR 48 L 47 L (59 - ) (59 - ) Glucose 101 mg/dL 107 mg/dL (65-110) (65-110) Calcium 8.9 mg/dL 8.3 L mg/dL (8.4-10.2) (8.4-10.2) Total Bilirubin 1.5 H mg/dL 1.6 H mg/dL (0.2-1.3) (0.2-1.3) AST 29 U/L 25 U/L (17-59) (17-59) ALT 35 U/L 26 U/L (6-50) (6-50) Alkaline Phosphatase 56 U/L 47 U/L (38-126) (38-126) Total Protein 7.1 g/dL 5.9 L g/dL (6.3-8.2) (6.3-8.2) Albumin 4.0 g/dL 3.2 L g/dL (3.5-5.1) (3.5-5.1) Urine Color Yellow (Yellow) Urine Appearance Clear (Clear) Urine pH 5.5 (5.0-9.0) Ur Specific [place] 1.018 (1.001-1.035) Urine Protein Negative mg/dL (Negative) Urine Glucose (UA) Negative mg/dL (Negative) Urine Ketones Trace H mg/dL (Negative) Ur Blood (Man) Trace (Negative) Urine Nitrate Negative (Negative) Urine Bilirubin Negative (Negative) Urine Urobilinogen 0.2 mg/dL (<2.0) Leukocyte Esterase Rfl Trace H OWEN/UL (Negative) Urine RBC 3-5 H /hpf (0-2) Urine WBC 0-5 /hpf (0-3) Ur Squamous Epith Cells None seen /hpf (Few) Urine Bacteria None seen /hpf Urine Casts 0-2 Patient hx anesthesia problems: none Family hx anesthesia problems: none Results Review: All pre-operative results and documents have been reviewed as part of the pre-operative evaluation. [facility] Past Medical History Medical History History of renal stone Diverticulitis of intestine with perforation Surgical History Surgical History History of colonoscopy approx 2021 S/P appendectomy Social History Social History Social History: Resides in [place] Smoking packs per day: 5 Smoking cigarettes per day: 100.0 Years smoked: 1 Smoking pack-years: 5.00 Smoking status: Former smoker Tobacco type: cigarettes Smokeless tobacco user: chewing tobacco Second hand tobacco smoke exposure: No Alcohol intake: current Drinks per week: 5 Substance use type: does not use Do You Feel Safe in your Home?: Yes Lack of Transportation: No Lack of Food: Never True Current Housing: I Have Housing Concerned About Future Housing: No Difficulty Paying Gas/Electric Bills: No Difficulty Paying for Meds: No Currently Unemployed: No Education: Associate Degree Difficulty w/ Childcare or Family Care: No Occupation/Education: occupation 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 Informed Consent: The patient's anesthetic plan and its attendant risks and benefits were discussed with the patient/family/POA. Questions were solicited and answers provided to the satisfaction of the patient/family/POA.
--- NOTE | 2024-09-05 11:46 | WPDHPUPDATE1 ---
History and Physical Update Update Date/Time: 09/05/24 11:46 History and Physical has been reviewed, including an updated exam of the patient. There are NO changes in the patient's condition. Risks, benefits, and alternatives have been discussed and questions answered. Patient agrees to proceed with procedure. proceed with cystoscopy, right retrograde, right stent placement, possible ureteroscopy with laser
[2024-09-05] MEDS: fentaNYL CITRATE INJ (*CRX) 100 MCG/2 ML VIAL 25 MCG IV PUSH ×4 (11:49→12:03)
--- NOTE | 2024-09-05 11:58 | P.PNAN_ITS ---
Anes - Initial Pre Proc Eval Procedure: Operation Date: 09/05/24 12:30 Proposed Procedures p Cystoscopy, Right Retrograde Pyelogram, Right Stent Placement - Harshil Iniguez MD Date/Time: 09/05/24 11:58 Surgeon: Cliare Collazo MD Pre Op Diagnosis: ureterolothiasis Patient Data Age: 54 Gender: M Height: 1.85 m Weight: 140.3 kg Last Vital Signs Temp 36.8 C 09/05/24 11:25 Pulse 66 09/05/24 11:25 Resp 18 09/05/24 11:25 BP 139/76 09/05/24 11:25 Pulse Ox 97 09/05/24 11:25 O2 Del Method Room Air 09/05/24 11:25 FiO2 21 09/04/24 21:27 Allergies Allergy/AdvReac Type Severity Reaction Status Date / Time Penicillins Allergy Hives Verified 09/04/24 11:22 Home Medications ?Medication ?Instructions ?Recorded ?Confirmed ?Type hydrocodone 5 mg-acetaminophen 325 1 tablet PO Q8H PRN pain #7 tabs 09/02/24 09/04/24 Rx mg tablet ketorolac 10 mg tablet 10 mg PO Q8H PRN pain 5 days #14 09/02/24 09/04/24 Rx tabs ondansetron 4 mg disintegrating 4 mg PO Q8H PRN nausea and 09/02/24 09/04/24 Rx tablet vomiting #7 tabs tamsulosin 0.4 mg capsule 0.4 mg PO DAILY #12 caps 09/02/24 09/04/24 Rx Laboratory Tests 09/04/24 09/04/24 09/05/24 13:34 13:57 07:02 WBC 10.0 K/mm3 8.6 K/mm3 (4.5-10.0) (4.5-10.0) RBC 4.79 M/mm3 4.08 L M/mm3 (4.6-6.20) (4.6-6.20) Hgb 15.0 g/dL 12.8 L g/dL (14.0-18.0) (14.0-18.0) Hct 43.8 % 37.9 L % (42.0-52.0) (42.0-52.0) MCV 91.4 fl 92.9 fl (80-100) (80-100) MCH 31.3 pg 31.4 pg (26-34) (26-34) MCHC 34.2 g/dl 33.8 g/dl (32-36) (32-36) RDW 13.4 % 13.2 % (11.5-14.5) (11.5-14.5) Plt Count 214 k/mm3 179 k/mm3 (150-375) (150-375) MPV 9.6 fl 10.1 fl (7.4-10.4) (7.4-10.4) Immature Gran % (Auto) 0.2 % 0.5 % (0-0.5) (0-0.5) Neut % (Auto) 75.0 H % 74.0 H % (45.5-73.1) (45.5-73.1) Lymph % (Auto) 14.7 L % 13.5 L % (18.3-44.2) (18.3-44.2) [place] % (Auto) 8.5 % 9.7 H % (2.6-8.5) (2.6-8.5) Eos % (Auto) 1.2 % 1.7 % (0-4.4) (0-4.4) Baso % (Auto) 0.4 % 0.6 % (0.2-1.2) (0.2-1.2) Lymph # (Auto) 1.47 K/mm3 1.16 K/mm3 (0.9-3.2) (0.9-3.2) [place] # (Auto) 0.9 H K/mm3 0.8 H K/mm3 (0.1-0.6) (0.1-0.6) Eos # (Auto) 0.1 K/mm3 0.2 K/mm3 (0-0.3) (0-0.3) Baso # (Auto) 0.0 K/mm3 0.1 K/mm3 (0.0-0.1) (0.0-0.1) Abs Immat Gran (auto) 0.02 K/mm3 0.04 H K/mm3 (0.00-0.031) (0.00-0.031) Absolute Neuts (auto) 7.5 H K/mm3 6.4 K/mm3 (1.3-6.7) (1.3-6.7) Absolute Nucleated RBC 0.000 K/mm3 0.000 K/mm3 (0.0-0.012) (0.0-0.012) Nucleated RBC % 0.0 % 0.0 % (0.0-0.2) (0.0-0.2) Sodium 141 mmol/L 139 mmol/L (137-145) (137-145) Potassium 3.9 mmol/L 3.9 mmol/L (3.4-5.0) (3.4-5.0) Chloride 106 mmol/L 107 mmol/L (98-107) (98-107) Carbon Dioxide 27 mmol/L 27 mmol/L (22-30) (22-30) Anion Gap 8 mmol/L 5 mmol/L (4-12) (4-12) BUN 13 D mg/dL 12 mg/dL (9-20) (9-20) Creatinine 1.51 H mg/dL 1.56 H mg/dL (0.7-1.3) (0.7-1.3) Estim Creat Clear Calc 74 ml/min 72 ml/min Estimated GFR 48 L 47 L (59 - ) (59 - ) Glucose 101 mg/dL 107 mg/dL (65-110) (65-110) Calcium 8.9 mg/dL 8.3 L mg/dL (8.4-10.2) (8.4-10.2) Total Bilirubin 1.5 H mg/dL 1.6 H mg/dL (0.2-1.3) (0.2-1.3) AST 29 U/L 25 U/L (17-59) (17-59) ALT 35 U/L 26 U/L (6-50) (6-50) Alkaline Phosphatase 56 U/L 47 U/L (38-126) (38-126) Total Protein 7.1 g/dL 5.9 L g/dL (6.3-8.2) (6.3-8.2) Albumin 4.0 g/dL 3.2 L g/dL (3.5-5.1) (3.5-5.1) Urine Color Yellow (Yellow) Urine Appearance Clear (Clear) Urine pH 5.5 (5.0-9.0) Ur Specific [place] 1.018 (1.001-1.035) Urine Protein Negative mg/dL (Negative) Urine Glucose (UA) Negative mg/dL (Negative) Urine Ketones Trace H mg/dL (Negative) Ur Blood (Man) Trace (Negative) Urine Nitrate Negative (Negative) Urine Bilirubin Negative (Negative) Urine Urobilinogen 0.2 mg/dL (<2.0) Leukocyte Esterase Rfl Trace H OWEN/UL (Negative) Urine RBC 3-5 H /hpf (0-2) Urine WBC 0-5 /hpf (0-3) Ur Squamous Epith Cells None seen /hpf (Few) Urine Bacteria None seen /hpf Urine Casts 0-2 Patient hx anesthesia problems: none Family hx anesthesia problems: none Results Review: All pre-operative results and documents have been reviewed as part of the pre- operative evaluation. [facility] Past Medical History Medical History History of renal stone Diverticulitis of intestine with perforation Surgical History Surgical History History of colonoscopy approx 2021 S/P appendectomy Social History Social History Social History: Resides in [place] Smoking packs per day: 5 Smoking cigarettes per day: 100.0 Years smoked: 1 Smoking pack-years: 5.00 Smoking status: Former smoker Tobacco type: cigarettes Smokeless tobacco user: chewing tobacco Second hand tobacco smoke exposure: No Alcohol intake: current Drinks per week: 5 Substance use type: does not use Do You Feel Safe in your Home?: Yes Lack of Transportation: No Lack of Food: Never True Current Housing: I Have Housing Concerned About Future Housing: No Difficulty Paying Gas/Electric Bills: No Difficulty Paying for Meds: No Currently Unemployed: No Education: Associate Degree Difficulty w/ Childcare or Family Care: No Occupation/Education: occupation 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 Informed Consent: The patient's anesthetic plan and its attendant risks and benefits were discussed with the patient/family/POA. Questions were solicited and answers provided to the satisfaction of the patient/family/POA.
[2024-09-05] MEDS: ceFAZolin 3 GM/D5W 100 ML 100 ML IVPB (12:18)
[2024-09-05] MEDS: LIDOCAINE 2% GEL UROJET 10 ML PKG MUCOUS MEM (12:33)
--- NOTE | 2024-09-05 13:01 | W.PM.PROC2 ---
Procedure Note - Detailed Date of Procedure 09/05/24 Pre-op Diagnosis right ureteral calculus 6 mm Post-op Diagnosis Same Procedure Performed cystoscopy, right retrograde, right ureteroscopy with laser, stone extraction, right ureteral stent placement 4.8 Bermudian contour Surgeon Harshil Iniguez MD Anesthesia General Description of Procedure patient was taken to the operative suite correctly identified. Once anesthesia was obtained he was placed in dorsal lithotomy position and prepped and draped usual sterile fashion. Twenty-two Bermudian scope was inserted the bladder. There were no strictures or tumors noted. The right ureteral orifice was cannulated with a guidewire. It was dilated with an 8/10 dilator and then a ureteral access sheath was placed. Mini flexible ureteral scope was inserted. The stone was too large to retrieve piece. Using a 200 micron fiber it was lasered. The largest pieces were sent for analysis. Pyelogram was then performed to confirm placement of the stent. 4.8 Bermudian contour stent was then placed with the proximal end coiled in the renal pelvis and the distal end in the bladder. Bladder was drained. 2% viscous lidocaine was inserted into the urethra patient is taken recovery stable condition. He can be discharged later today and follow up in 1 week for stent removal.This completes dictation. Please send a copy of op note to my office. Estimated Blood Loss 0 Urine Output 500 Drains Yes Packing No Pathology Yes Complications No immediate complications Condition Stable Disposition PACU
--- NOTE | 2024-09-05 14:02 | PM.DS ---
DS: Admitting Diagnosis Discharge Date 09/05 Admitting Diagnosis right ureteral calculus 6 mm DS: Discharge Diagnosis Discharge Diagnosis (1) Calculus of proximal right ureter: Code(s): N20.1 - Calculus of ureter Status: Acute (2) Hydronephrosis: Code(s): N13.30 - Unspecified hydronephrosis Status: Acute (3) Calcium renal calculus: Code(s): N20.0 - Calculus of kidney Status: Acute (4) Acute kidney injury: Code(s): N17.9 - Acute kidney failure, unspecified Status: Acute DS: Summary Hospital Course Hospital Course: 54-year-old male with past medical history of kidney stones and diverticulitis presents here with bilateral flank pain and abdominal pain. The patient originally presented to [facility] on 09/02 for further evaluation of right lower quadrant pain that woke him from sleep at 5:00 a.m.. Pain in his right abdomen radiated into his right flank. This was accompanied by subjective fevers, chills, and diaphoresis. He reported at that time that his urine was darker than usual, but denied any accompanying dysuria, urgency, or frequency. At the time he also reported diarrhea that had started the day prior. As the patient's urine did not appear infected and the degree of obstruction and hydronephrosis were mild, the patient was a good candidate for outpatient treatment. He was prescribed Toradol, Flomax, and Zofran as well as a short course of opiates for breakthrough pain. Now returning today as the pain has continued to be constant and he has not passed the stone. Now endorsing urinary frequency and dysuria. He denies any current fever or chills. Patient with 5 mm proximal right ureteral calculus with mild hydroureteronephrosis. cystoscopy, right retrograde, right ureteroscopy with laser, stone extraction, right ureteral stent placement 4.[address] Iniguez. Per urology note- He can be discharged later today and follow up in 1 week for stent removal. Status at Discharge Functional status at discharge: independent ambulation Overall status at discharge: patient is progressing back to baseline Time Spent with Patient Time attestation: Total time spent providing and/or coordinating discharge services: Exam Narrative: General: Awake, alert, comfortable, no acute distress HEENT: Normocephalic, atraumatic, sclerae anicteric Respiratory: Normal respiratory effort, no accessory muscle use Skin: Normal coloration, warm and dry Neurologic: No focal neuro deficits noted Psychiatric: Appropriate mood and affect, judgment and insight intact Const: General: no acute distress Other: , male, mild discomfort noted, obese body habitus, nontoxic appearance HENMT: Face/Nose/Sinus: Normal nares present Mouth: Yes moist mucous membranes Eyes: General: appearance normal, both eyes and all related structures Sclera: sclerae normal Pupils: Equal, round and reactive pupils present EOM: EOMs intact bilaterally Resp: Effort & Inspection: normal respiratory effort Auscultation: clear to auscultation bilaterally Cardio: Rate: regular rate Rhythm: regular rhythm Other: S1-S2 present without murmur, rub, ectopy GI: Other: Abdomen soft, nondistended, nontender with palpation. Normoactive bowel sounds in all quadrants. Skin: General skin exam: normal color and no rashes or lesions noted Wounds: no wounds Neuro: Cranial nerves: Yes Equal, round and reactive pupils present Speech: normal speech Motor exam (neuro): 5/5 motor strength present throughout Sensory Exam: normal sensation Other: A&O x4 Extrem: General: normal to inspection Psych: Mental Status: mental status grossly normal Affect: normal affect Other: Good insight and judgment, very pleasant DS: Data Data Completed and Pending Labs on day of discharge: Labs from last 24 hours 09/05/24 09/04/24 09/04/24 07:02 13:57 13:34 WBC 8.6 10.0 RBC 4.08 L 4.79 Hgb 12.8 L 15.0 Hct 37.9 L 43.8 MCV 92.9 91.4 MCH 31.4 31.3 MCHC 33.8 34.2 RDW 13.2 13.4 Plt Count 179 214 MPV 10.1 9.6 Immature Gran % (Auto) 0.5 0.2 Neut % (Auto) 74.0 H 75.0 H Lymph % (Auto) 13.5 L 14.7 L [place] % (Auto) 9.7 H 8.5 Eos % (Auto) 1.7 1.2 Baso % (Auto) 0.6 0.4 Lymph # (Auto) 1.16 1.47 [place] # (Auto) 0.8 H 0.9 H Eos # (Auto) 0.2 0.1 Baso # (Auto) 0.1 0.0 Abs Immat Gran (auto) 0.04 H 0.02 Absolute Neuts (auto) 6.4 7.5 H Absolute Nucleated RBC 0.000 0.000 Nucleated RBC % 0.0 0.0 Sodium 139 141 Potassium 3.9 3.9 Chloride 107 106 Carbon Dioxide 27 27 Anion Gap 5 8 BUN 12 13 D Creatinine 1.56 H 1.51 H Estim Creat Clear Calc 72 74 Estimated GFR 47 L 48 L Glucose 107 101 Calcium 8.3 L 8.9 Total Bilirubin 1.6 H 1.5 H AST 25 29 ALT 26 35 Alkaline Phosphatase 47 56 Total Protein 5.9 L 7.1 Albumin 3.2 L 4.0 Urine Color Yellow Urine Appearance Clear Urine pH 5.5 Ur Specific [place] 1.018 Urine Protein Negative Urine Glucose (UA) Negative Urine Ketones Trace H Ur Blood (Man) Trace Urine Nitrate Negative Urine Bilirubin Negative Urine Urobilinogen 0.2 Leukocyte Esterase Rfl Trace H Urine RBC 3-5 H Urine WBC 0-5 Ur Squamous Epith Cells None seen Urine Bacteria None seen Urine Casts 0-2 Discharge Plan Discharge Attending physician on discharge: Claire Collazo Consulting providers: King Flores Discharging Clinician: Oneyda Medina Patient Disposition: Home Activity: july shower Diet: regular Discharge Instructions: YOu were admitted for kidney stone. cystoscopy, right retrograde, right ureteroscopy with laser, stone extraction, right ureteral stent placement 4.8 Turkish contour was done 09/05/24. Dr Iniguez was ok with your discharge and advised you to follow up in 1 week for stent removal. Patient Instructions: Antibiotic Form Patient Language: Nepali Stand Alone Forms: General Discharge Information Follow-up/Referrals: Harshil Iniguez MD [Physician] - 1 Week Discharge Medications: Continued tamsulosin 0.4 mg capsule 0.4 mg PO DAILY Qty: 12 0RF Rx Instructions: start 09/03 (received dose in ED 09/02) ondansetron 4 mg tablet,disintegrating 4 mg PO Q8H PRN (Reason: nausea and vomiting) Qty: 7 0RF ketorolac 10 mg tablet 10 mg PO Q8H PRN (Reason: pain) 5 Days Qty: 14 0RF Rx Instructions: maximum total duration of 5 days from all oral, intranasal, or parenteral formulations. Received first dose in ED 09/02 9am hydrocodone-acetaminophen 5-325 mg tablet 1 tablet PO Q8H PRN (Reason: pain) Qty: 7 0RF Date of admission: 09/04/24 16:58 Primary Care Provider: PHYSICIAN NOT ON STAFF,NONSTAFF Admitting Provider: Claire Collazo Attending physician on admission: Claire Collazo Condition: Stable Quality VTE Prophylaxis VTE prophylaxis: mechanical ordered
--- NOTE | 2024-09-05 14:10 | PC.NURSE ---
Returned from OR per [ ]. Report received from [Ethel].
[2024-09-05] MEDS: HYDROcodone/acetaminophen (*CRX) 5-325 MG TABLET 1 TAB PO ×2 (15:36→22:32)
--- NOTE | 2024-09-05 18:09 | PCRCNOTE ---
Apnea link not done last night on 09/04. nurse, NETSUITE CONSULTANT, and clinical education manager aware. Will put in an order for one tonight.
[2024-09-06] MEDS: HYDROmorphone HCL INJ (*CRX) 2 MG/ML VIAL 1 MG IV PUSH ×3 (00:24→12:31)
[2024-09-06] MEDS: HYDROcodone/acetaminophen (*CRX) 5-325 MG TABLET 1 TAB PO ×3 (02:02→20:25)
[2024-09-06 03:35] VITALS: BP 116/68; PULSE 60; RESP 16; TEMP 36.1; O2SAT 100
[2024-09-06 08:05] VITALS: BP 156/77; PULSE 84; RESP 16; TEMP 36.2; O2SAT 100
--- NOTE | 2024-09-06 08:29 | S_PTH ---
PATIENT: Sen Newell LOC: [id number] U#:[id number] AGE/SX: 54/M ROOM: 320 RE09/04/[address]: Claire Collazo MD : 1970 BED: 01 DIS: 09/07/2024 SPEC #: [id number] RECD: 09/06/24 08:41 STATUS: JA REMadiha #: [id number] GREGG: 09/06/24 08:[address]: Geetha,Harshil Waldron DEPT: [facility] Surgical RECD BY: Alana Manzo ENTERED: 09/06/24 08:41 SP TYPE: Surgical OTHR DR: MD Claire David MD PHYSICIAN NOT ON STAFF Ailyn Valdez PA-C Tissues: A - Stone Procedures: Gross Exam Level 1 Crystalline Analysis
[2024-09-06 08:54] LABS: Anion Gap 9 mmol/L (4-12); Blood Urea Nitrogen 11 mg/dL (9-20); Calcium 9.2 mg/dL (8.4-10.2); Carbon Dioxide 28 mmol/L (22-30); Chloride 101 mmol/L (98-107); Estimated CRCL calculation 108 ml/min; Estimated Glomerular Filt Rate > 60; Glucose 145 mg/dL (65-110); Potassium 4.2 mmol/L (3.4-5.0); Sodium 138 mmol/L (137-145)
--- NOTE | 2024-09-06 09:01 | PM.IMPN ---
Progress Note: A&P Assessment and Plan (1) Calculus of proximal right ureter: Code(s): N20.1 - Calculus of ureter Status: Acute Assessment and Plan: Abdomen XR 09/04 showed Bilateral nephrolithiasis with 5 mm stone in the proximal right ureter. Abdomen/pelvis CT showed a 5 mm calculus in the right proximal ureter causing mild hydroureteronephrosis, no significant interval change compared to prior CT on 09/02 Analgesics p.r.n.. Continue Flomax. Urology consulted s/p cystoscopy, right retrograde, right ureteroscopy with laser, stone extraction, right ureteral stent placement 4.8 [place] contour on 09/[address] Iniguez Re-emphasized the importance of follow up for stent removal. Patient voiced understanding. He can follow up in the office in one week for cystoscopy and stent removal. Okay for discharge from urological standpoint Continues to have pain, exacerbated with urination. Continues to use IV analgesics. Started on oxybutynin and norco increased to 7.5 mg for pain. (2) Hydronephrosis: Code(s): N13.30 - Unspecified hydronephrosis Status: Acute Assessment and Plan: See plan above (3) Calcium renal calculus: Code(s): N20.0 - Calculus of kidney Status: Acute Assessment and Plan: see plan above (4) Acute kidney injury: Code(s): N17.9 - Acute kidney failure, unspecified Status: Acute Assessment and Plan: Creatinine 0.84 and GFR >60 on 09/02 -> 1.51 and GFR 48 on 09/04. Presumed OPAL secondary to renal calculi causing mild right hydroureteronephrosis. UA showed no indicators of infection. Monitor I/O Avoid nephrotoxic medications Renally dose medications OPAL resolved following cystoscopy, right retrograde, right ureteroscopy with laser, stone extraction, right ureteral stent placement 4.8 [place] contour on 09/[address] Iniguez Time Spent With Patient Time with patient: 25 - 35 minutes Subjective Date/time seen: 09/06/24 09:01 Interval history: 54-year-old male with past medical history of kidney stones and diverticulitis presents with bilateral flank pain and abdominal pain. Patient is pleasant lying comfortably in bed. Continues to endorse severe pain with urination and has been requiring IV pain medicine throughout the day. He has no other complaints denying chest pain, shortness a breath, palpitations, nausea/vomiting, and abdominal pain. Review of Systems Review of Systems: All systems reviewed & are unremarkable except as noted in HPI and below Exam Narrative: AF HR 73 RR 16 SpO2 100 BP 155/83 General: male in no acute respiratory distress who is nontoxic appearing, lying semi recumbent in bed. HEENT: Normocephalic. Atraumatic. Extraocular movement intact. Sclera clear and anicteric. No facial asymmetry. Chest: Lungs are clear to auscultation bilaterally. No wheezes or crackles. CV: Heart was regular rate and rhythm. S1/S2. No murmurs, gallops, or rubs. Abd: Abdomen was soft. Slight abdominal tenderness in the hypogastric region. Nondistended. Positive bowel sounds. Ext: No clubbing, cyanosis, or edema. DP pulses bilaterally. Neuro: Patient is alert and oriented x4. Speech is clear. Objective Data Vital Signs Vital Signs: Vital Signs - 24 hr 09/05/24 11:25 09/05/24 13:09 09/05/24 13:20 Temperature 98.3 F 98.4 F Pulse Rate 66 62 60 Respiratory Rate 18 15 15 Blood Pressure 139/76 136/86 142/79 H Pulse Oximetry 97 96 94 Oxygen Delivery Room Air Simple Face Mask Simple Face Mask Oxygen Flow Rate 8 8 09/05/24 13:35 09/05/24 13:50 09/05/24 14:05 Temperature Pulse Rate 73 60 61 Respiratory Rate 18 18 18 Blood Pressure 138/72 128/77 137/78 Pulse Oximetry 92 92 93 Oxygen Delivery Room Air Room Air Room Air Oxygen Flow Rate 09/05/24 14:10 09/05/24 14:20 09/05/24 14:35 Temperature 96.0 F L 96.0 F L Pulse Rate 64 66 63 Respiratory Rate 17 16 18 Blood Pressure 137/78 156/84 H 159/83 H Pulse Oximetry 92 97 97 Oxygen Delivery Room Air Oxygen Flow Rate 09/05/24 15:05 09/05/24 16:05 09/05/24 20:00 Temperature 96.1 F L 96.2 F L Pulse Rate 69 77 Respiratory Rate 18 16 Blood Pressure 149/84 H 164/83 H Pulse Oximetry 98 99 Oxygen Delivery Room Air Oxygen Flow Rate 09/05/24 20:05 06/24/25 22:40 09/05/24 23:55 Temperature 96.3 F L 97.8 F Pulse Rate 78 68 Respiratory Rate 16 16 Blood Pressure 154/75 H 105/53 L Pulse Oximetry 95 97 96 Oxygen Delivery Room Air Oxygen Flow Rate 09/06/24 03:35 09/06/24 08:05 Temperature 97.0 F L 97.1 F L Pulse Rate 60 84 Respiratory Rate 16 16 Blood Pressure 116/68 156/77 H Pulse Oximetry 100 100 Oxygen Delivery Oxygen Flow Rate Intake/Output Intake/Output: Intake & Output 09/03/24 09/04/24 09/05/24 09/06/24 23:59 23:59 23:59 23:59 Intake Total 1000 3324.2 Output Total 700 3500 Balance 300 -175.8 Meds/Results Medications: Active Medications Generic Name Dose Route Start Last Admin Trade Name Freq PRN Reason Stop Dose Admin Acetaminophen 650 mg 09/04/24 22:05 Acetaminophen 325 Mg Tablet PO Q6H PRN Mild Pain (1-3) or Fever Hydrocodone Bitart/Acetaminophen 1 tab 09/04/24 22:05 09/06/24 08:52 Hydrocodone/Acetaminophen (*Crx) 5-325 Mg Tablet PO 1 tab Q4H PRN Administration Pain Rated 4-6 Hydromorphone HCl 1 mg 09/04/24 22:06 09/06/24 03:45 Hydromorphone Hcl Inj (*Crx) 2 Mg/Ml Vial IV PUSH 1 mg Q3H PRN Administration Pain Rated 7-10 Ondansetron HCl 4 mg 09/04/24 16:58 Ondansetron Inj 4 Mg/2 Ml Vial IV PUSH Q4H PRN Nausea Tamsulosin HCl 0.4 mg 09/05/24 09:00 09/05/24 08:01 Tamsulosin Hcl 0.4 Mg Capsule PO 0.4 mg DAILY VÍCTOR Administration Radiology Results: ITS Impressions Abdomen/Pelvis CT 09/04/24 14:29 IMPRESSION: 1. 5 mm calculus in the right proximal ureter causing mild hydroureteronephrosis. No significant interval change. Abdomen X-Ray 09/04/24 14:54 IMPRESSION: 1. Bilateral nephrolithiasis with 5 mm stone in the proximal right ureter. Labs Labs: Laboratory Results - last 24 hr 09/06/24 08:18 Sodium 138 Potassium 4.2 Chloride 101 Carbon Dioxide 28 Anion Gap 9 BUN 11 Creatinine 1.02 Estim Creat Clear Calc 108 Estimated GFR > 60 Glucose 145 H Calcium 9.2 Quality VTE Prophylaxis VTE prophylaxis: mechanical ordered
--- NOTE | 2024-09-06 10:00 | PC.NURSE ---
Patient c/o lower back pain at a nine Dr Iniguez notified. He called back ordered oxybutynin 5mg for stent spasms.
[2024-09-06] MEDS: TAMSULOSIN HCL 0.4 MG CAPSULE PO (10:48)
[2024-09-06] MEDS: oxyBUTYnin CHLORIDE 5 MG TABLET PO (10:48)
[2024-09-06 12:05] VITALS: BP 155/83; PULSE 73; RESP 16; TEMP 35.7; O2SAT 100
--- NOTE | 2024-09-06 15:28 | P.PNUR_ITS ---
Progress Note: A&P Assessment and Plan (1) Calculus of proximal right ureter: Code(s): N20.1 - Calculus of ureter Status: Acute (2) Hydronephrosis: Code(s): N13.30 - Unspecified hydronephrosis Status: Acute (3) Calcium renal calculus: Code(s): N20.0 - Calculus of kidney Status: Acute (4) Acute kidney injury: Code(s): N17.9 - Acute kidney failure, unspecified Status: Acute Plan 54y old male with 5 mm proximal right ureteral calculus with mild hydroureteronephrosis. POD 1 cystoscopy, right retrograde, right ureteroscopy with laser, stone extraction, right ureteral stent placement 4.[address] [place] [address] Iniguez. -Re-emphasized the importance of follow up for stent removal. Patient voiced understanding. He can follow up in the office in one week for cystoscopy and stent removal. -Negative urine culture on 09/02/2024. -Creatinine 1.02 today. -Discharge from urology standpoint. Subjective Subjective Date/Time Seen: 09/06/24 15:28 Interval history: 54-year-old male with past medical history of kidney stones and diverticulitis presents with bilateral flank pain and abdominal pain. He is POD 1 cystoscopy, right retrograde, right ureteroscopy with laser, stone extraction, right ureteral stent placement 4.8 [place] contour. Patient c/o discomfort with urination secondary to ureteral stent. Otherwise he is doing well. Review of Systems Review of Systems: All systems reviewed & are unremarkable except as noted in HPI and below Exam Narrative: No distress. Patient laying in bed comfortably. Const: General: cooperative, healthy appearing, obese and overweight Nutritional Appearance: obese and overweight Orientation/consciousness: patient oriented x3 Limitations: no limitations HENMT: Head: normal to inspection Eyes: General: appearance normal, both eyes and all related structures Neck: Neck: normal visual inspection Resp: Effort & Inspection: normal respiratory effort, no cough and no grunting GI: Inspection: normal to inspection Skin: General skin exam: normal color Neuro: General: patient oriented x3 and moves all extremities Extrem: General: normal to inspection Objective Data Vital Signs Vital Signs: Vital Signs - 24 hr 09/05/24 16:05 09/05/24 20:00 09/05/24 20:05 Temperature 96.2 F L 96.3 F L Pulse Rate 77 78 Respiratory Rate 16 16 Blood Pressure 164/83 H 154/75 H Pulse Oximetry 99 95 Oxygen Delivery Room Air 09/05/24 22:40 09/05/24 23:55 09/06/24 03:35 Temperature 97.8 F 97.0 F L Pulse Rate 68 60 Respiratory Rate 16 16 Blood Pressure 105/53 L 116/68 Pulse Oximetry 97 96 100 Oxygen Delivery Room Air 09/06/24 08:05 09/06/24 12:05 Temperature 97.1 F L 96.2 F L Pulse Rate 84 73 Respiratory Rate 16 16 Blood Pressure 156/77 H 155/83 H Pulse Oximetry 100 100 Oxygen Delivery Intake/Output Intake/Output: Intake & Output 09/03/24 09/04/24 09/05/24 09/06/24 23:59 23:59 23:59 23:59 Intake Total 1000 3324.2 720 Output Total 700 3500 Balance 300 -175.8 720 Meds/Results Medications: Active Medications Generic Name Dose Route Start Last Admin Trade Name Freq PRN Reason Stop Dose Admin Acetaminophen 650 mg 09/04/24 22:05 Acetaminophen 325 Mg Tablet PO Q6H PRN Mild Pain (1-3) or Fever Hydrocodone Bitart/Acetaminophen 1 tab 09/04/24 22:05 09/06/24 08:52 Hydrocodone/Acetaminophen (*Crx) 5-325 Mg Tablet PO 1 tab Q4H PRN Administration Pain Rated 4-6 Hydrocodone Bitart/Acetaminophen 1 tab 09/06/24 14:34 Hydrocodone/Acetaminophen (*Crx) 7.5-325 Mg Tablet PO Q6H PRN Pain Rated 7-10 Hydromorphone HCl 1 mg 09/06/24 14:34 Hydromorphone Hcl Inj (*Crx) 2 Mg/Ml Vial IV PUSH Q4H PRN Pain Rated 7-10 Ondansetron HCl 4 mg 09/04/24 16:58 Ondansetron Inj 4 Mg/2 Ml Vial IV PUSH Q4H PRN Nausea Oxybutynin Chloride 5 mg 09/06/24 09:59 09/06/24 10:48 Oxybutynin Chloride 5 Mg Tablet PO 5 mg TID PRN Administration Spasms Tamsulosin HCl 0.4 mg 09/05/24 09:00 09/06/24 10:48 Tamsulosin Hcl 0.4 Mg Capsule PO 0.4 mg DAILY VÍCTOR Administration Radiology Results: ITS Impressions Abdomen/Pelvis CT 09/04/24 14:29 IMPRESSION: 1. 5 mm calculus in the right proximal ureter causing mild hydroureteronephrosis. No significant interval change. Abdomen X-Ray 09/04/24 14:54 IMPRESSION: 1. Bilateral nephrolithiasis with 5 mm stone in the proximal right ureter. Labs Labs: Laboratory Results - last 24 hr 09/06/24 08:18 Sodium 138 Potassium 4.2 Chloride 101 Carbon Dioxide 28 Anion Gap 9 BUN 11 Creatinine 1.02 Estim Creat Clear Calc 108 Estimated GFR > 60 Glucose 145 H Calcium 9.2
[2024-09-06 16:05] VITALS: BP 149/75; PULSE 63; RESP 14; TEMP 35.6; O2SAT 100
[2024-09-06] MEDS: HYDROcodone/acetaminophen (*CRX) 7.5-325 MG TABLET 1 TAB PO (17:30)
[2024-09-06 20:00] VITALS: PULSE 63; RESP 16; O2SAT 99
[2024-09-06 21:23] VITALS: BP 185/97; PULSE 63; RESP 16; TEMP 36.6; O2SAT 99
[2024-09-07] MEDS: HYDROcodone/acetaminophen (*CRX) 7.5-325 MG TABLET 1 TAB PO
[2024-09-07 06:33] VITALS: BP 147/87; PULSE 57; RESP 20; TEMP 36.4; O2SAT 97
[2024-09-07 07:17] LABS: Alanine Aminotransferase 23 U/L (6-50); Albumin Level 3.4 g/dL (3.5-5.1); Alkaline Phosphatase 49 U/L (38-126); Anion Gap 7 mmol/L (4-12); Aspartate Amino Transferase 23 U/L (17-59); Bilirubin,Total 0.7 mg/dL (0.2-1.3); Blood Urea Nitrogen 12 mg/dL (9-20); Calcium 8.6 mg/dL (8.4-10.2); Carbon Dioxide 30 mmol/L (22-30); Chloride 104 mmol/L (98-107); Estimated CRCL calculation 116 ml/min; Estimated Glomerular Filt Rate > 60; Glucose 112 mg/dL (65-110); Potassium 3.7 mmol/L (3.4-5.0); Sodium 141 mmol/L (137-145); Total Protein 6.4 g/dL (6.3-8.2)
[2024-09-07] MEDS: TAMSULOSIN HCL 0.4 MG CAPSULE PO (09:34)
[2024-09-07 11:30] VITALS: BP 139/83; PULSE 62; RESP 16; TEMP 36.3; O2SAT 99
--- NOTE | 2024-09-07 16:49 | P.DS_ITS ---
DS: Admitting Diagnosis Discharge Date 09/07/24 Admitting Diagnosis calculus of proximal right ureter hydronephrosis calcium renal calculus opal DS: Discharge Diagnosis Discharge Diagnosis (1) Calculus of proximal right ureter: Code(s): N20.1 - Calculus of ureter Status: Acute (2) Hydronephrosis: Code(s): N13.30 - Unspecified hydronephrosis Status: Acute (3) Calcium renal calculus: Code(s): N20.0 - Calculus of kidney Status: Acute (4) Acute kidney injury: Code(s): N17.9 - Acute kidney failure, unspecified Status: Acute DS: Summary Hospital Course Reason for hospitalization: calculus of proximal right ureter hydronephrosis calcium renal calculus opal Hospital Course: 54-year-old male with past medical history of kidney stones and diverticulitis presents with bilateral flank pain and abdominal pain. Patient had OPAL on admission with a creatinine 1.51 and GFR 48 on 09/04, previously creatinine was within normal limits. OPAL secondary to renal calculi causing mild right hydroureteronephrosis. OPAL resolved during admission following stent placement. No signs of infection. Abdomen XR 09/04 showed bilateral nephrolithiasis with 5 mm stone in the proximal right ureter. Abdomen/pelvis CT showed a 5 mm calculus in the right proximal ureter causing mild hydroureteronephrosis, no significant interval change compared to prior CT on 09/02. Patient was started on flomax. Urology was consulted and patient underwent a cystoscopy, right retrograde, right ureteroscopy with laser, stone extraction, right ureteral stent placement 4.8 [place] contour on 09/[address] Iniguez. He remained inpatient for pain control on 09/06. He was started on oxybutynin and norco dose increased. Patient was ready for discharge from a urological standpoint. At time of discharge patient states his pain is well controlled on the current oral regimen. Patient has no complaints at time discharge denying chest pain, shortness a breath, palpitations, nausea/vomiting, abdominal pain. Patient discharged home in a stable condition. He is to follow up with PCP in 1 week and urology as scheduled. Status at Discharge Functional status at discharge: independent ambulation Time Spent with Patient Time attestation: Total time spent providing and/or coordinating discharge services: Time spent: Greater than 30 minutes Exam Narrative: AF HR 62 RR 16 SpO2 99 BP 139/83 General: male in no acute respiratory distress who is nontoxic appearing, sitting up on side of bed HEENT: Normocephalic. Atraumatic. Extraocular movement intact. Sclera clear and anicteric. No facial asymmetry. Chest: Lungs are clear to auscultation bilaterally. No wheezes or crackles. CV: Heart was regular rate and rhythm. S1/S2. No murmurs, gallops, or rubs. Abd: Abdomen was soft. Slight abdominal tenderness in the hypogastric region. Nondistended. Positive bowel sounds. Ext: No clubbing, cyanosis, or edema. DP pulses bilaterally. Neuro: Patient is alert and oriented x4. Speech is clear. DS: Data Data Completed and Pending Completed studies during hospitalization: retrograde pyelogram abdomen xr abdomen pelvis ct abdomen pelvis ct Pending studies at discharge: Pending at discharge 09/06/24 08:29 Surgical [PTH] Routine Labs on day of discharge: Labs from last 24 hours 09/07/24 06:25 Sodium 141 Potassium 3.7 Chloride 104 Carbon Dioxide 30 Anion Gap 7 BUN 12 Creatinine 0.94 Estim Creat Clear Calc 116 Estimated GFR > 60 Glucose 112 H Calcium 8.6 Total Bilirubin 0.7 AST 23 ALT 23 Alkaline Phosphatase 49 Total Protein 6.4 Albumin 3.4 L Discharge Plan Discharge Attending physician on discharge: Claire Collazo Consulting providers: King Flores; Ailyn Looney Discharging Clinician: Oneyda Medina Anticipated Discharge Date/Time: 09/07/24 11:31 Patient Disposition: Home Activity: july shower Diet: regular Discharge Instructions: Discharge disposition: You were admitted for kidney stone. Underwent cystoscopy, right retrograde, right ureteroscopy with laser, stone extraction, right ureteral stent placement 4.8 [place] contour was done 09/05/24. Dr Iniguez was ok with your discharge and advised you to follow up in 1 week for stent removal. Take medications as prescribed Started on tamsulosin Take oxybutinin for bladder spasms Take norco as needed for break through pain do not drive or operate heavy machinery on norco Attached is information on these medications Take caution while standing, rising, or moving Change positions slowly taking a break between each position change If you standing feel dizzy sit back down and take a break Encouraged to continue with yearly vaccinations Return to the emergency department if he developed sudden shortness of breath, chest pain, nausea, vomiting, upset stomach or intractable diarrhea Return to the emergency department if you develop fever greater than 101.5 Follow-up with the primary care physician within 1-2 weeks Thank you for choosing [facility] for your healthcare needs Patient Instructions: Oxybutynin (By mouth), Hydrocodone/Acetaminophen (By mouth), Tamsulosin (By mouth), Cystoscopy (DC), Ureteral Stent Placement (DC) Patient Language: Honduran Stand Alone Forms: General Discharge Information Follow-up/Referrals: Harshil Iniguez MD [Physician] - 1 Week Discharge Medications: New hydrocodone-acetaminophen 7.5-325 mg Tablet 1 tablet PO Q6H PRN (Reason: Pain Rated 7-10) Qty: 10 0RF oxybutynin chloride 5 mg Tablet 5 mg PO TID PRN (Reason: Spasms) Qty: 21 0RF Continued tamsulosin 0.4 mg capsule 0.4 mg PO DAILY Qty: 12 0RF Rx Instructions: start 09/03 (received dose in ED 09/02) Discontinued ondansetron 4 mg tablet,disintegrating 4 mg PO Q8H PRN (Reason: nausea and vomiting) Qty: 7 0RF ketorolac 10 mg tablet 10 mg PO Q8H PRN (Reason: pain) 5 Days Qty: 14 0RF Rx Instructions: maximum total duration of 5 days from all oral, intranasal, or parenteral formulations. Received first dose in ED 09/02 9am hydrocodone-acetaminophen 5-325 mg tablet 1 tablet PO Q8H PRN (Reason: pain) Qty: 7 0RF Date of admission: 09/04/24 16:58 Primary Care Provider: PHYSICIAN NOT ON STAFF,NONSTAFF Admitting Provider: Claire Collazo Attending physician on admission: Claire Collazo Condition: Stable Hospitalist MIPS Heart Failure (Exclusion) Patient has history of Heart Transplant or Left Ventricular Assistive Device?: No IF YES, STOP HERE Heart Failure (Qualifier) Patient has current or prior documentation of LVEF less than or equal to 40%, or mod/servere depressed LVSF?: No IF NO, STOP HERE
== END 2024-09-07 12:20 | disposition home or self-care (01) ==
LOC: ANHED 16:00 → ANH3MEDSUR 17:21
PROVIDERS: Student in an Organized Health Care Education/Training Program; Urology; Admitting Provider Internal Medicine; Emergency Provider Emergency Medicine; Visit Provider Internal Medicine
PROC: (CPT 52352; principal; 2024-09-05 12:30)
DX: N13.2 Hydronephrosis with renal and ureteral calculous obstruction (principal); N17.9 Acute kidney failure, unspecified; F17.220 Nicotine dependence, chewing tobacco, uncomplicated; E66.01 Morbid (severe) obesity due to excess calories; Z68.41 Body mass index [BMI] 40.0-44.9, adult; Z87.19 Personal history of other diseases of the digestive system; Z87.442 Personal history of urinary calculi; Z88.0 Allergy status to penicillin
CPT/HCPCS: 52356; 36415; 74018; 74176; 74420; 80048; 80053; 81001; 82365; 85025; 88300; 94762; 96374; 96375; 96376; 99285; A9270; C1769; C1894; C2617; G0378; J0690; J1100; J1171; J2405; J2704; J3010; J7030; J7120; Q9966

== ENCOUNTER 2024-09-23 14:46 | Emergency (ER) | payer BC, SELFPAY ==
--- NOTE | ~2024-09-23 | XR_ITS ---
XR chest 2V Ordering provider: Minerva Beasley APRN History: 54 years Male with . cough SOB x 1 day . Comparison: None. FINDINGS: MEDIASTINUM: The cardiac silhouette is not enlarged. LUNGS: No infiltrates, effusions or pneumothorax. OTHER: No free air under the diaphragm. Postoperative changes in the right clavicle. Degenerative racheal nges of the spine. IMPRESSION: No acute cardiopulmonary pathology. Reviewed, dictated and finalized at location A.
--- NOTE | 2024-09-23 14:49 | ED.URI ---
HPI - URI/Sore Throat General Chief Complaint: Upper Respiratory Infection Stated Complaint: COUGH/CHILLS/SWEATING/HEADACHE Time Seen by Provider: 09/23/24 15:05 Source: patient, RN notes reviewed and old records reviewed Mode of arrival: ambulatory Limitations: no limitations History of Present Illness HPI Narrative: 54-year-old male presents to the [facility] with complaints of cough, chills, sweating, headache. Symptoms started yesterday. Denies chest pain nausea or vomiting. Denies fevers. Had been taking NyQuil. Treatments prior to arrival: cold medicine Related Data Allergies Allergy/AdvReac Type Severity Reaction Status Date / Time Penicillins Allergy Hives Verified 09/23/24 14:59 Review of Systems Review of Systems: All systems reviewed & are unremarkable except as noted in HPI and below Constitutional: Constitutional: Reports as per HPI, Reports no additional constitutional complaints and Reports fatigue ENT: Reports system reviewed and no additional complaints, except as documented Cardiovascular: Cardiovascular: Reports no additional cardiovascular complaints, Denies chest pain and Denies dyspnea Respiratory: Respiratory: Reports as per HPI, Denies chest congestion, Reports cough and Denies dyspnea Musculoskeletal: Musculoskeletal: Reports no additional musculoskeletal complaints Integumentary/Breasts: Skin/Breast: Reports system reviewed and no additional complaints, except as docu PMFSH Past Medical History Medical History History of renal stone Diverticulitis of intestine with perforation Surgical History Surgical History History of colonoscopy approx 2021 S/P appendectomy Social History Social History Social History: Resides in [place] Smoking packs per day: 5 Smoking cigarettes per day: 100.0 Years smoked: 1 Smoking pack-years: 5.00 Smoking status: Former smoker Tobacco type: cigarettes Smokeless tobacco user: chewing tobacco Second hand tobacco smoke exposure: No Alcohol intake: current Drinks per week: 5 Substance use type: does not use Do You Feel Safe in your Home?: Yes Lack of Transportation: No Lack of Food: Never True Current Housing: I Have Housing Concerned About Future Housing: No Difficulty Paying Gas/Electric Bills: No Difficulty Paying for Meds: No Currently Unemployed: No Education: Associate Degree Difficulty w/ Childcare or Family Care: No Occupation/Education: occupation 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 There is no relevant family history pertinent to the patient complaint. Exam Const: General: cooperative, healthy appearing, comfortable, no acute distress, well developed, alert and well nourished Nutritional Appearance: well nourished and obese Orientation/consciousness: patient oriented x3 Limitations: no limitations HENMT: Head: normal to inspection Ears: hearing grossly normal bilaterally, external ears normal, TM's normal bilaterally, EAC's normal, mastoids normal and no periauricular adenopathy Face/Nose/Sinus: Normal external nose present Mouth: Yes Normal oral and palatal mucosa present, Yes lip normal, Yes tongue normal and Yes moist mucous membranes Throat: posterior oropharynx normal, uvula midline and no uvular edema Eyes: General: appearance normal, both eyes and all related structures Alignment and Position: alignment normal Neck: Neck: normal visual inspection, full ROM, no lymphadenopathy and no meningeal signs Chest: Chest palpation & inspection: normal inspection of the chest Resp: Effort & Inspection: normal respiratory effort and able to speak in complete sentences Auscultation: clear to auscultation bilaterally, no crackles, no rales, no rhonchi and no wheezes Cardio: Rate: regular rate Skin: General skin exam: normal color and no rashes or lesions noted Neuro: General: patient oriented x3, gait normal, moves all extremities and no meningeal signs Cognition (Neuro): normal cognition Speech: normal speech Gait exam (Neuro): Normal gait present Extrem: General: normal to inspection, full ROM, capillary refill normal and normal gait Psych: Appearance: grossly normal and well kempt Mental Status: mental status grossly normal Speech and movement: Normal speech and movement present and Clear speech present Affect: normal affect Attitude: cooperative Course Course Level of Care: Express Care Visit Vital Signs Vital signs: Vital Signs Temperature 96.7 F L 09/23/24 15:02 Pulse Rate 121 H 09/23/24 15:02 Respiratory Rate 16 09/23/24 15:02 Blood Pressure 167/93 H 09/23/24 15:02 Pulse Oximetry 97 09/23/24 15:02 Temperature 96.7 F L 09/23/24 15:02 Pulse Rate 121 H 09/23/24 15:02 Respiratory Rate 16 09/23/24 15:02 Blood Pressure 167/93 H 09/23/24 15:02 Pulse Oximetry 97 09/23/24 15:02 Reviewed MDM - URI/Sore Throat MDM Narrative Medical decision making narrative: Patient sitting in exam room. Patient is nontoxic oxygen level normal. Blood pressure is elevated. Heart rate slightly elevated. Patient is flu, COVID are negative in clinic. Chest x-ray was negative. Patient most likely a viral URI symptoms. Discussed signs and symptoms to proceed to the emergency room which he verbalized understanding. Discharge instructions reviewed with patient, as well as provided in writing per nursing staff. The instructions also include specific and strict return/GO TO THE ER as well as f/u information. All questions have been answered, and the patient deny any further questions with discharge and discharge plan. Some parts of this dictation were generated by voice recognition software and may contain typographical and/or grammatical inaccuracies. Differential Diagnosis Differential diagnosis: Likely upper respiratory infection, otitis media, sinusitis, viral infection, bronchitis, influenza and pharyngitis Lab Data Labs: Lab Results 09/23/24 Range/Units 15:33 POC Influenza A Ag Negative (Negative) POC Influenza B Ag Negative (Negative) POC SARS CoV-2 Ag Negative (Negative) Reviewed Imaging Data Radiologist's impression: XR chest 2V Ordering provider: Minerva Beasley APRN History: 54 years Male with . cough SOB x 1 day . Comparison: None. FINDINGS: MEDIASTINUM: The cardiac silhouette is not enlarged. LUNGS: No infiltrates, effusions or pneumothorax. OTHER: No free air under the diaphragm. Postoperative changes in the right clavicle. Degenerative changes of the spine. IMPRESSION: No acute cardiopulmonary pathology. Critical Care Time Critical Care Time Critical Care Time: No Discharge Plan Discharge Clinical Impression: Viral infection Upper respiratory infection Qualifiers: URI type: unspecified viral URI Qualified Code(s): J06.9 - Acute upper respiratory infection, unspecified Acute bronchitis Qualifiers: Bronchitis organism: unspecified organism Qualified Code(s): J20.9 - Acute bronchitis, unspecified Patient Disposition: Home Condition: Stable Instructions: Upper Respiratory Infection (ED), Acute Bronchitis (ED), Viral Syndrome (ED) Additional Instructions: Today your blood pressure was 167/93. Please follow-up with your primary care provider to have this rechecked within 2 weeks. Your chest x-ray did not show signs of a pneumonia. Your rapid COVID test were negative Your rapid flu test was negative Your symptoms are likely due to a viral illness, which is not treated with antibiotics. Typically viral infections last 7-10 days, can linger for couple of weeks. It is very important to treat your symptoms. Drink plenty of water, Gatorade, Pedialyte, ice pops or Jell-O. -Alternate Tylenol and Motrin per package directions for fever or pain. You can alternate every 4 hours -Antihistamine medication such as Zyrtec/Claritin/Nadege during the day can help improve symptoms. -doing daily nasal irrigations can help relieve pressure your sinuses. Things like a Neti pot -Use Flonase twice a day for 5 days then daily to help reduce the inflammation and dry up your sinuses. -You can also use Mucinex. Be sure to drink plenty of water with this medication at least 8 ounces with every dose and it is important to drink 8 to 10 glasses of water per day. Water is a natural decongestant -Eat and drink things that are easy to swallow, like tea or soup, or popsicles. -Oral rinses such as: Salt water gargles and/or may use topical anesthetic (eg. Chloraseptic spray) or lozenges to relieve dryness or throat pain). -Frequent hand washing or hand workforce development program director is one of the best ways to prevent spread of infection. -Using a vaporizer or humidifier at night will also help thin secretions and help with coughing up phlegm. -Follow up with primary care provider in 7-10 days if condition is not improving - For new or worsening symptoms go directly to the nearest ER Patient Language: Burmese Prescriptions: No Action hydrocodone-acetaminophen 7.5-325 mg Tablet 1 tablet PO Q6H PRN (Reason: Pain Rated 7-10) Qty: 10 0RF oxybutynin chloride 5 mg Tablet 5 mg PO TID PRN (Reason: Spasms) Qty: 21 0RF tamsulosin 0.4 mg capsule 0.4 mg PO DAILY Qty: 12 0RF Rx Instructions: start 09/03 (received dose in ED 09/02) Follow-up/Referrals: UNKNOWN,DOCTOR [Non-Staff] - Stand Alone Forms: Work/School Release IP Time of Disposition: 15:58
[2024-09-23 15:02] VITALS: BP 167/93; PULSE 121; RESP 16; TEMP 35.9; O2SAT 97
[2024-09-23 15:35] LABS: EDCOVIDSCREEN Negative (Negative); EDINFLUASCREEN Negative (Negative); EDINFLUBSCREEN Negative (Negative)
== END 2024-09-23 16:12 | disposition home or self-care (01) ==
PROVIDERS: Emergency Provider Nurse Practitioner
DX: J06.9 Acute upper respiratory infection, unspecified (principal); B97.89 Other viral agents as the cause of diseases classified elsewhere; J20.9 Acute bronchitis, unspecified; Z87.891 Personal history of nicotine dependence; Z20.822 Contact with and (suspected) exposure to COVID-19
CPT/HCPCS: 71046; 87426; 87804; 99213; G0463